=== PATIENT | male | born 1955 | race African-American/Black ===

== ENCOUNTER 2018-01-30 15:09 | Inpatient (IN) | payer OTHER ==
[2018-01-30 15:42] VITALS: BMI 22.5
--- NOTE | 2018-01-30 16:02 | HP ---
Admission [facility] Chief Complaint: i am here for rehab from heroin and alcohol Allergies/Adverse Reactions: Allergies Allergy/AdvReac Type Severity Reaction Status Date / Time Fish Containing Products Allergy Severe Hives Verified 01/30/18 15:35 No Known Drug Allergies Allergy Verified 01/30/18 15:35 History of Present Illness: this 62 years old male with heroin and alcohol dependence seeking rehab,last detox [facility] from 01/21/18 to 01/24/18 hypertension no medication nicotine dependence positive ppd schizophrenia - Ebola screening Have you traveled outside of the country in the last 21 days: No Have you had contact with anyone from an Ebola affected area: No Have you been sick,other than usual withdrawal symptoms: No Do you have a fever: No - Review of Systems Constitutional: No Symptoms Reported EENT: reports: No Symptoms Reported Respiratory: reports: No Symptoms reported Cardiac: reports: No Symptoms Reported GI: reports: No Symptoms Reported : reports: No Symptoms Reported Musculoskeletal: reports: No Symptoms Reported Integumentary: reports: No Symptoms Reported Neuro: reports: No Symptoms reported Endocrine: reports: No Symptoms Reported Hematology: reports: No Symptoms Reported Psychiatric: reports: No Sypmtoms Reported, Judgement Intact, Mood/Affect Appropiate, other (schizophrenia) Patient History - Patient Medical History Hx Anemia: No Hx Asthma: No Hx Chronic Obstructive Pulmonary Disease (COPD): No Hx Cancer: No Hx Cardiac Disorders: No Hx Hypertension: Yes (NO MEDS) Hx Hypercholesterolemia: No Hx Pacemaker: No HX Cerebrovascular Accident: No Hx Seizures: No Hx Dementia: No Hx Diabetes: No Hx Gastrointestinal Disorders: No Hx Liver Disease: No Hx Genitourinary Disorders: No Hx Sexually Transmitted Disorders: No Hx Renal Disease (ESRD): No Hx Thyroid Disease: No Hx Human Immunodeficiency Virus (HIV): No (last 2014 negative) Hx Hepatitis C: No Hx Depression: No Hx Suicide Attempt: No Hx Bipolar Disorder: No Hx Schizophrenia: Yes (2YRS AGO,hallucination) Other Medical History: no suicicdal,no homicidl - Patient Surgical History Past Surgical History: No Hx Neurologic Surgery: No Hx Cataract Extraction: No Hx Cardiac Surgery: No Hx Lung Surgery: No Hx Breast Surgery: No Hx Breast Biopsy: No Hx Abdominal Surgery: No Hx Appendectomy: No Hx Cholecystectomy: No Hx Genitourinary Surgery: No Hx Section: No Hx Orthopedic Surgery: No Anesthesia Reaction: No - PPD History Previous Implant?: No Documented Results: Positive w/o proof Implanted On Prior R Admission?: Yes PPD to be Administered?: No - Smoking Cessation Smoking history: Current every day smoker Have you smoked in the past 12 months: Yes Aproximately how many cigarettes per day: 4 Hx Chewing Tobacco Use: No Initiated information on smoking cessation: Yes 'Breaking Loose' booklet given: 01/30/18 - Substance & Tx. History Hx Alcohol Use: Yes Hx Substance Use: Yes Substance Use Type: Alcohol, Heroin Hx Substance Use Treatment: Yes ([facility] to 01/24/18) - Substances Abused Heroin Route: Inhalation Frequency: Daily Amount used: 3BAGS Age of first use: 41 Date of Last Use: 01/29/18 Alcohol Route: Oral Frequency: Daily Amount used: VODKA- 1PT BEER 1CAN Age of first use: 21 Date of Last Use: 01/29/18 Family Disease History - Family Disease History Family Disease History: Heart Disease: Father ( FROM CAD), Other: Mother ( HAD DEMENTIA AND ) Admission Physical Exam [facility] - Vital Signs Vital Signs: Vital Signs - 24 hr 01/30/18 15:33 Temperature 98.5 F Pulse Rate 69 Respiratory 20 Rate Blood Pressure 163/100 - Physical General Appearance: Yes: Within Normal Limits HEENTM: Yes: Within Normal Limits, Normal ENT Inspection, JODEE, Pharynx Normal Respiratory: Yes: Lungs Clear, Normal Breath Sounds, No Respiratory Distress Neck: Yes: Within Normal Limits, Supple, Trachea in good position Breast: Yes: Within Normal Limits Cardiology: Yes: Within Normal Limits, Regular Rhythm, Regular Rate, S1, S2 Abdominal: Yes: Within Normal Limits, Normal Bowel Sounds, Non Tender, Flat, Soft Genitourinary: Yes: Within Normal Limits Back: Yes: Within Normal Limits Musculoskeletal: Yes: Within Normal Limits, full range of Motion Extremities: Yes: Within Normal Limits Neurological: Yes: toddler guide II-XII NML intact, Fully Oriented, Alert, Motor Strength 5/5 Integumentary: Yes: Within Normal Limits Lymphatic: Yes: Within Normal Limits - Diagnostic (1) Opiate dependence Current Visit: No Status: Acute (2) Alcohol dependence Current Visit: No Status: Acute (3) HTN (hypertension) Current Visit: No Status: Chronic (4) Nicotine dependence Current Visit: No Status: Chronic (5) Schizophrenia Current Visit: No Status: Chronic Cleared for Admission [facility] - Detox or Rehab Claeared for Rehab Admission: Yes [facility] Breath Alcohol Content Breath Alcohol Content: 0 Urine Drug Screen - Results Drug Screen Negative: No Urine Drug Screen Results: OPI-Opiates, BZO-Benzodiazepines, MTD-Methadone, OXY- Oxycodone Inpatient Rehab Admission - Initial Determination Are CD services needed?: Yes Free of communicable disease: Yes Not in need of hospitalization: Yes - Rehab Admission Criteria Previous failed treatment: Yes Poor recovery environment: Yes Comorbidities: Yes Lacks judgement: No Patient is meeting Inpatient Rehab admission criteria:: Yes
[2018-01-30] MEDS ORDERED: P-EPHED 60MG/TRIPROLIDI 2.5MG TABLET PO PRN (16:06)
[2018-01-30] MEDS ORDERED: NICOTINE POLACRILEX 2 MG GUM BUC PRN (16:06)
[2018-01-30] MEDS ORDERED: MAG HYDROX/AL HYDROX/SIMETH 30 ML UNIT-DOSE CUP PO PRN (16:06)
[2018-01-30] MEDS ORDERED: ACETAMINOPHEN 325 MG TABLET (FP) PO PRN (16:06)
[2018-01-30] MEDS ORDERED: MAGNESIUM HYDROX 2400MG/30ML ORAL SUSPENSION 30 ML CUP PO PRN (16:06)
[2018-01-30] MEDS ORDERED: MAGNESIUM CITRATE 300 ML BOTTLE PO PRN (16:06)
[2018-01-30] MEDS ORDERED: LOPERAMIDE HCL 2 MG CAPSULE PO PRN (16:06)
[2018-01-30] MEDS ORDERED: guaiFENesin/D-METHORPHAN HB 10 ML UNIT-DOSE CUPS PO PRN (16:06)
[2018-01-30] MEDS ORDERED: MENTHOL/PHENOL 1 EACH UD MM PRN (16:06)
[2018-01-30] MEDS: NICOTINE 21 MG/24 HOURS TOPICAL PATCH TD SCH (20:24)
[2018-01-30] MEDS: THIAMINE HCL 100 MG TABLET (FP) PO SCH (21:47)
[2018-01-30] MEDS: MELATONIN 5 MG TABLETS PO PRN (21:47)
[2018-01-30] MEDS: hydrOXYzine PAMOATE 25 MG CAPSULE (FP) PO PRN (21:47)
[2018-01-31] MEDS: METOPROLOL TARTRATE 25 MG TABLET (FP) PO SCH (07:25)
[2018-01-31] MEDS: HYDROCHLOROTHIAZIDE 25 MG TABLET (FP) PO SCH (07:25)
[2018-01-31] MEDS: PRENATAL VITAMINS W/ FOLIC ACID TABLET (FP) PO SCH (09:57)
[2018-01-31] MEDS: NICOTINE 21 MG/24 HOURS TOPICAL PATCH TD SCH (09:58)
[2018-01-31] MEDS: MELATONIN 5 MG TABLETS PO PRN (21:38)
[2018-01-31] MEDS: hydrOXYzine PAMOATE 25 MG CAPSULE (FP) PO PRN (21:38)
[2018-01-31] MEDS: THIAMINE HCL 100 MG TABLET (FP) PO SCH (21:38)
[2018-02-01] MEDS: HYDROCHLOROTHIAZIDE 25 MG TABLET (FP) PO SCH (06:24)
[2018-02-01] MEDS: METOPROLOL TARTRATE 25 MG TABLET (FP) PO SCH (06:24)
--- NOTE | 2018-02-01 07:47 | HP ---
Psychiatrist Admission - Data Date of interview: 02/01/18 Admission source: Self-referred Identifying data: [facility] for this 62 years old Black male, father of 2 children, unemployed on public assistance, homeless Medical History: Significant for hypertension and history of treatment PPD+. Smokes 4 cigarettes daily Psychiatric History: Information provided by patient is inconsitent with the one provided in previoua admissions to this facility. Reports that he was that his first psychiatric contact was back in the 's when he was admitted to a [facility] facility in [place] for hearing voices. He was diagnosed with Schizophrenia and startedc on medication. Reports 2 subsequent admissions after coming to [place]. He was admitted first to [place] and most recentlt in 2016 to [place] for hearing voices. Reports that he was seeing a psychiatrist at a clinic in the [place] and he is prescribed medications. He has no recollection of name of medications. Pharmacy claims reveal scripts for Abilify 30 mg filled on 12/29/17, for Prozac 40 mg, Remeron 15 mg and Risperdal 1mg on 01/23/18. Denies previous suicidal attempt. At present, reports feeling depressed, anxious and sleeping poorly Physical/Sexual Abuse/Trauma History: Reports no history of physical or sexual abuse, and no history of service. Additional Comment: Reports history of multiple previous arrests including 3 felony convictions. Denies being on parole/probation at present Vital Signs: Vital Signs - 24 hr 02/01/18 02/01/18 02/01/18 00:30 03:30 06:58 Temperature 97.8 F Pulse Rate 67 Respiratory 18 18 18 Rate Blood Pressure 158/105 Allergies/Adverse Reactions: Allergies Allergy/AdvReac Type Severity Reaction Status Date / Time Fish Containing Products Allergy Severe Hives Verified 01/30/18 15:35 No Known Drug Allergies Allergy Verified 01/30/18 15:35 Date of last physical exam: 01/30/18 Concur with the findings of this exam: Yes - Substance Abuse/Tx History Hx Alcohol Use: Yes Hx Substance Use: Yes Substance Use Type: Alcohol (Started drinking alcohol at age 21, consumes one pint of vodka & one can of beer daily. Last drank on 01/29/18), Heroin (Started using heroin at age 41, consumes 3 bags daily. Last used on 01/29/18) Hx Substance Use Treatment: Yes (one previous inpt detox & one inpt rehab @ [facility] ) Mental Status Exam - Mental Status Exam Alert and Oriented to: Time, Place, Person Cognitive Function: Fair Patient Appearance: Disheveled Mood: Depressed, Anxious Affect: Appropriate Patient Behavior: Cooperative Speech Pattern: Clear Voice Loudness: Normal Thought Process: Intact, Goal Oriented Hallucinations: Denies Suicidal Ideation: Denies Insight/Judgement: Fair Sleep: Poorly Appetite: Good Muscle strength/Tone: Normal Gait/Station: Normal Psychiatric Findings - Problem List ([place] 1, 2,3) (1) Alcohol dependence Current Visit: No Status: Acute (2) Opiate dependence Current Visit: No Status: Acute (3) Nicotine dependence Current Visit: No Status: Chronic (4) Schizophrenia Current Visit: Yes Status: Chronic (5) Substance induced mood disorder Current Visit: Yes Status: Acute (6) Substance-induced sleep disorder Current Visit: Yes Status: Acute (7) HTN (hypertension) Current Visit: No Status: Chronic (8) PPD positive, treated Current Visit: Yes Status: Resolved - Initial Treatment Plan Initial Treatment Plan: 1) Continue Prozac 40 mg po daily, Remeron 15 mg po HS, Risperdal 1 mg po HS, Abilify 30 mg po HS. 2) Monitor progress
[2018-02-01] MEDS: NICOTINE 21 MG/24 HOURS TOPICAL PATCH TD SCH (10:03)
[2018-02-01] MEDS: PRENATAL VITAMINS W/ FOLIC ACID TABLET (FP) PO SCH (10:03)
[2018-02-01] MEDS: IBUPROFEN 400 MG TABLET (FP) PO PRN (12:19)
[2018-02-01] MEDS: FLUoxetine HCL 20 MG CAPSULE (FP) PO SCH (14:00)
[2018-02-01] MEDS: ARIPiprazole 15 MG TABLET PO SCH ×2 (14:00→14:12)
[2018-02-01] MEDS: hydrOXYzine PAMOATE 25 MG CAPSULE (FP) PO PRN (21:56)
[2018-02-01] MEDS: MIRTAZAPINE 15 MG TABLET (FP) PO SCH (21:56)
[2018-02-01] MEDS: risperiDONE 1 MG TABLET (FP) PO SCH (21:56)
[2018-02-01] MEDS: MELATONIN 5 MG TABLETS PO PRN (21:56)
[2018-02-01] MEDS: THIAMINE HCL 100 MG TABLET (FP) PO SCH (21:56)
[2018-02-01] MEDS ORDERED: MIRTAZAPINE 30 MG TABLET (FP) PO SCH (22:00)
[2018-02-02] MEDS: METOPROLOL TARTRATE 25 MG TABLET (FP) PO SCH (06:04)
[2018-02-02] MEDS: HYDROCHLOROTHIAZIDE 25 MG TABLET (FP) PO SCH (06:04)
[2018-02-02] MEDS: NICOTINE 21 MG/24 HOURS TOPICAL PATCH TD SCH (10:00)
[2018-02-02] MEDS: ARIPiprazole 15 MG TABLET PO SCH (10:00)
[2018-02-02] MEDS: FLUoxetine HCL 20 MG CAPSULE (FP) PO SCH (10:00)
[2018-02-02] MEDS: PRENATAL VITAMINS W/ FOLIC ACID TABLET (FP) PO SCH (10:00)
[2018-02-02] MEDS: MIRTAZAPINE 15 MG TABLET (FP) PO SCH (21:31)
[2018-02-02] MEDS: risperiDONE 1 MG TABLET (FP) PO SCH (21:31)
[2018-02-02] MEDS: THIAMINE HCL 100 MG TABLET (FP) PO SCH (21:31)
[2018-02-02] MEDS: MELATONIN 5 MG TABLETS PO PRN (21:32)
[2018-02-03] MEDS: METOPROLOL TARTRATE 25 MG TABLET (FP) PO SCH (06:47)
[2018-02-03] MEDS: HYDROCHLOROTHIAZIDE 25 MG TABLET (FP) PO SCH (06:47)
[2018-02-03] MEDS: FLUoxetine HCL 20 MG CAPSULE (FP) PO SCH (10:26)
[2018-02-03] MEDS: NICOTINE 21 MG/24 HOURS TOPICAL PATCH TD SCH (10:27)
[2018-02-03] MEDS: ARIPiprazole 15 MG TABLET PO SCH (10:27)
[2018-02-03] MEDS: PRENATAL VITAMINS W/ FOLIC ACID TABLET (FP) PO SCH (10:27)
[2018-02-03] MEDS: risperiDONE 1 MG TABLET (FP) PO SCH (21:30)
[2018-02-03] MEDS: THIAMINE HCL 100 MG TABLET (FP) PO SCH (21:30)
[2018-02-03] MEDS: MIRTAZAPINE 15 MG TABLET (FP) PO SCH (21:30)
[2018-02-03] MEDS: MELATONIN 5 MG TABLETS PO PRN (21:31)
[2018-02-04] MEDS: HYDROCHLOROTHIAZIDE 25 MG TABLET (FP) PO SCH (06:42)
[2018-02-04] MEDS: METOPROLOL TARTRATE 25 MG TABLET (FP) PO SCH (06:43)
[2018-02-04] MEDS: FLUoxetine HCL 20 MG CAPSULE (FP) PO SCH (10:27)
[2018-02-04] MEDS: PRENATAL VITAMINS W/ FOLIC ACID TABLET (FP) PO SCH (10:27)
[2018-02-04] MEDS: NICOTINE 21 MG/24 HOURS TOPICAL PATCH TD SCH (10:27)
[2018-02-04] MEDS: ARIPiprazole 15 MG TABLET PO SCH (10:28)
[2018-02-04] MEDS: THIAMINE HCL 100 MG TABLET (FP) PO SCH (21:35)
[2018-02-04] MEDS: MIRTAZAPINE 15 MG TABLET (FP) PO SCH (21:35)
[2018-02-04] MEDS: MELATONIN 5 MG TABLETS PO PRN (21:35)
[2018-02-04] MEDS: risperiDONE 1 MG TABLET (FP) PO SCH (21:35)
[2018-02-05] MEDS: HYDROCHLOROTHIAZIDE 25 MG TABLET (FP) PO SCH (05:59)
[2018-02-05] MEDS: METOPROLOL TARTRATE 25 MG TABLET (FP) PO SCH (06:00)
[2018-02-05] MEDS: PRENATAL VITAMINS W/ FOLIC ACID TABLET (FP) PO SCH (10:15)
[2018-02-05] MEDS: FLUoxetine HCL 20 MG CAPSULE (FP) PO SCH (10:15)
[2018-02-05] MEDS: ARIPiprazole 15 MG TABLET PO SCH (10:15)
[2018-02-05] MEDS: NICOTINE 21 MG/24 HOURS TOPICAL PATCH TD SCH (10:15)
[2018-02-05] MEDS: THIAMINE HCL 100 MG TABLET (FP) PO SCH (21:16)
[2018-02-05] MEDS: MELATONIN 5 MG TABLETS PO PRN (21:16)
[2018-02-05] MEDS: risperiDONE 1 MG TABLET (FP) PO SCH (21:17)
[2018-02-05] MEDS: MIRTAZAPINE 15 MG TABLET (FP) PO SCH (21:17)
[2018-02-06] MEDS: METOPROLOL TARTRATE 25 MG TABLET (FP) PO SCH (06:30)
[2018-02-06] MEDS: HYDROCHLOROTHIAZIDE 25 MG TABLET (FP) PO SCH (06:30)
[2018-02-06] MEDS: PRENATAL VITAMINS W/ FOLIC ACID TABLET (FP) PO SCH (09:56)
[2018-02-06] MEDS: FLUoxetine HCL 20 MG CAPSULE (FP) PO SCH (09:56)
[2018-02-06] MEDS: NICOTINE 21 MG/24 HOURS TOPICAL PATCH TD SCH (09:57)
[2018-02-06] MEDS: ARIPiprazole 15 MG TABLET PO SCH (09:57)
[2018-02-06] MEDS: MIRTAZAPINE 15 MG TABLET (FP) PO SCH (21:46)
[2018-02-06] MEDS: risperiDONE 1 MG TABLET (FP) PO SCH (21:46)
[2018-02-06] MEDS: MELATONIN 5 MG TABLETS PO PRN (21:46)
[2018-02-06] MEDS: THIAMINE HCL 100 MG TABLET (FP) PO SCH (21:46)
[2018-02-07] MEDS: METOPROLOL TARTRATE 25 MG TABLET (FP) PO SCH (06:09)
[2018-02-07] MEDS: HYDROCHLOROTHIAZIDE 25 MG TABLET (FP) PO SCH (06:09)
[2018-02-07] MEDS: NICOTINE 21 MG/24 HOURS TOPICAL PATCH TD SCH (10:16)
[2018-02-07] MEDS: ARIPiprazole 15 MG TABLET PO SCH (10:16)
[2018-02-07] MEDS: PRENATAL VITAMINS W/ FOLIC ACID TABLET (FP) PO SCH (10:16)
[2018-02-07] MEDS: FLUoxetine HCL 20 MG CAPSULE (FP) PO SCH (10:16)
--- NOTE | 2018-02-07 13:58 | EKG ---
Test Reason : Blood Pressure : / mmHG Vent. Rate : 076 BPM Atrial Rate : 076 BPM P-R Int : 160 ms QRS Dur : 080 ms QT Int : 382 ms P-R-T Axes : 062 038 055 degrees QTc Int : 429 ms NORMAL SINUS RHYTHM NORMAL ECG NO PREVIOUS ECGS AVAILABLE Confirmed by Zohaib Argueta MD ([id number]) on 02/07/2018 1:57:51 PM Referred By: Confirmed By:Zohaib Argueta MD
--- NOTE | 2018-02-07 15:18 | PN ---
[facility] Progress Note Note: Vital Signs Temperature 98.4 F 02/07/18 07:09 Pulse Rate 82 02/07/18 10:00 Respiratory Rate 18 02/07/18 10:00 Blood Pressure 125/77 02/07/18 10:00 O2 Sat by Pulse Oximetry (%) Patient c/o of vertigo patient stable Aox3 no distress no adventitious breath sounds ambulating in the in the unit - vertigo Plan: CBC CMP antivert 12.5 mg q6h increase fluids continue to monitor
[2018-02-07] MEDS: MECLIZINE HCL 12.5 MG TABLET PO SCH ×2 (17:40→23:27)
[2018-02-07] MEDS: MIRTAZAPINE 15 MG TABLET (FP) PO SCH (21:39)
[2018-02-07] MEDS: hydrOXYzine PAMOATE 25 MG CAPSULE (FP) PO PRN (21:39)
[2018-02-07] MEDS: risperiDONE 1 MG TABLET (FP) PO SCH (21:39)
[2018-02-07] MEDS: MELATONIN 5 MG TABLETS PO PRN (21:40)
[2018-02-07] MEDS: THIAMINE HCL 100 MG TABLET (FP) PO SCH (21:40)
[2018-02-08] MEDS: HYDROCHLOROTHIAZIDE 25 MG TABLET (FP) PO SCH (06:08)
[2018-02-08] MEDS: METOPROLOL TARTRATE 25 MG TABLET (FP) PO SCH (06:08)
[2018-02-08] MEDS: MECLIZINE HCL 12.5 MG TABLET PO SCH ×3 (06:08→18:13)
[2018-02-08] MEDS: ARIPiprazole 15 MG TABLET PO SCH (09:59)
[2018-02-08] MEDS: FLUoxetine HCL 20 MG CAPSULE (FP) PO SCH (09:59)
[2018-02-08] MEDS: NICOTINE 21 MG/24 HOURS TOPICAL PATCH TD SCH (09:59)
[2018-02-08] MEDS: PRENATAL VITAMINS W/ FOLIC ACID TABLET (FP) PO SCH (09:59)
[2018-02-08 10:07] LABS: ALBUMIN 3.6 g/dl (3.4-5.0); ANION GAP 9 (8-16); BILIRUBIN,TOTAL 0.3 mg/dL (0.2-1.0); BLOOD UREA NITROGEN 11 mg/dL (7-18); CALCIUM 9.6 mg/dL (8.5-10.1); CHLORIDE 106 mmol/L (98-107); CO2 28 mmol/L (21-32); GLUCOSE,RANDOM 171 mg/dL (74-106); POTASSIUM 3.9 mmol/L (3.5-5.1); SGOT/AST 22 U/L (15-37); SGPT/ALT 44 U/L (12-78); SODIUM 143 mmol/L (136-145)
[2018-02-08 10:08] LABS: ALK PHOS 64 U/L (45-117)
[2018-02-08 10:16] LABS: BASO % 0.6 % (0-2.0); HEMATOCRIT 39.4 % (35.4-49); HEMOGLOBIN 13.2 GM/dL (11.7-16.9); LYMPH % 21.7 % (8-40); MCHC 33.5 g/dl (32.0-35.9); MEAN CELL VOLUME 89.4 fl (80-96); MEAN PLT VOLUME 8.4 fl (7.5-11.1); MONO % 5.4 % (3.8-10.2); NEUT % 69.3 % (42.8-82.8); PLATELET COUNT 296 K/MM3 (134-434); RBC 4.41 M/mm3 (4.00-5.60); RDW 16.2 % (11.9-15.9)
[2018-02-08] MEDS: hydrOXYzine PAMOATE 25 MG CAPSULE (FP) PO PRN (21:23)
[2018-02-08] MEDS: risperiDONE 1 MG TABLET (FP) PO SCH (21:23)
[2018-02-08] MEDS: MELATONIN 5 MG TABLETS PO PRN (21:23)
[2018-02-08] MEDS: MIRTAZAPINE 15 MG TABLET (FP) PO SCH (21:23)
[2018-02-08] MEDS: THIAMINE HCL 100 MG TABLET (FP) PO SCH (21:24)
[2018-02-09] MEDS: MECLIZINE HCL 12.5 MG TABLET PO SCH ×5 (04:58→23:43)
[2018-02-09] MEDS: METOPROLOL TARTRATE 25 MG TABLET (FP) PO SCH (06:11)
[2018-02-09] MEDS: HYDROCHLOROTHIAZIDE 25 MG TABLET (FP) PO SCH (06:11)
[2018-02-09] MEDS: FLUoxetine HCL 20 MG CAPSULE (FP) PO SCH (10:03)
[2018-02-09] MEDS: PRENATAL VITAMINS W/ FOLIC ACID TABLET (FP) PO SCH (10:03)
[2018-02-09] MEDS: NICOTINE 21 MG/24 HOURS TOPICAL PATCH TD SCH (10:03)
[2018-02-09] MEDS: ARIPiprazole 15 MG TABLET PO SCH (10:23)
--- NOTE | 2018-02-09 14:31 | PN ---
[facility] Progress Note Note: Vital Signs Temperature 97.6 F 02/09/18 06:55 Pulse Rate 91 H 02/09/18 10:00 Respiratory Rate 18 02/09/18 10:00 Blood Pressure 103/77 02/09/18 10:00 O2 Sat by Pulse Oximetry (%) Laboratory Last Values WBC 7.0 K/mm3 (4.0-10.0) 02/08/18 06:30 RBC 4.41 M/mm3 (4.00-5.60) 02/08/18 06:30 Hgb 13.2 GM/dL (11.7-16.9) 02/08/18 06:30 Hct 39.4 % (35.4-49) D 02/08/18 06:30 MCV 89.4 fl (80-96) 02/08/18 06:30 MCH 30.0 pg (25.7-33.7) 02/08/18 06:30 MCHC 33.5 g/dl (32.0-35.9) 02/08/18 06:30 RDW 16.2 % (11.9-15.9) H 02/08/18 06:30 Plt Count 296 K/MM3 (134-434) D 02/08/18 06:30 MPV 8.4 fl (7.5-11.1) 02/08/18 06:30 Absolute Neuts (auto) 4.9 # 02/08/18 06:30 Neutrophils % 69.3 % (42.8-82.8) 02/08/18 06:30 Lymphocytes % 21.7 % (8-40) 02/08/18 06:30 Monocytes % 5.4 % (3.8-10.2) 02/08/18 06:30 Eosinophils % 3.0 % (0-4.5) 02/08/18 06:30 Basophils % 0.6 % (0-2.0) 02/08/18 06:30 Nucleated RBC % 0 % (0-0) 02/08/18 06:30 Sodium 143 mmol/L (136-145) 02/08/18 06:30 Potassium 3.9 mmol/L (3.5-5.1) 02/08/18 06:30 Chloride 106 mmol/L (98-107) 02/08/18 06:30 Carbon Dioxide 28 mmol/L (21-32) 02/08/18 06:30 Anion Gap 9 (8-16) 02/08/18 06:30 BUN 11 mg/dL (7-18) 02/08/18 06:30 Creatinine 1.0 mg/dL (0.7-1.3) 02/08/18 06:30 Creat Clearance w eGFR > 60 (>60) 02/08/18 06:30 Random Glucose 171 mg/dL (74-106) H D 02/08/18 06:30 Calcium 9.6 mg/dL (8.5-10.1) 02/08/18 06:30 Total Bilirubin 0.3 mg/dL (0.2-1.0) 02/08/18 06:30 AST 22 U/L (15-37) D 02/08/18 06:30 ALT 44 U/L (12-78) D 02/08/18 06:30 Alkaline Phosphatase 64 U/L (45-117) 02/08/18 06:30 Total Protein 7.0 g/dl (6.4-8.2) 02/08/18 06:30 Albumin 3.6 g/dl (3.4-5.0) 02/08/18 06:30 RPR Titer Nonreactive (NONREACTIVE) 02/08/18 06:30 Patient reports improvement in vertigo elevated blood glucose, reports has not tolerated sweats well , " I ate too many lollipops and I felt dizzy" Patient Aox3 no distress skin intact no adventitious breath sounds full ROM ambulating in the unit Plan: increase fluids labs reviewed with patient A1C in AM continue to monitor
[2018-02-09] MEDS: HYDROCORTISONE ACETATE 25 MG/SUPP.RECT RC SCH (21:03)
[2018-02-09] MEDS: MELATONIN 5 MG TABLETS PO PRN (21:04)
[2018-02-09] MEDS: risperiDONE 1 MG TABLET (FP) PO SCH (21:04)
[2018-02-09] MEDS: THIAMINE HCL 100 MG TABLET (FP) PO SCH (21:04)
[2018-02-09] MEDS: MIRTAZAPINE 15 MG TABLET (FP) PO SCH (21:04)
[2018-02-09] MEDS: hydrOXYzine PAMOATE 25 MG CAPSULE (FP) PO PRN (21:05)
[2018-02-10] MEDS: METOPROLOL TARTRATE 25 MG TABLET (FP) PO SCH (06:12)
[2018-02-10] MEDS: MECLIZINE HCL 12.5 MG TABLET PO SCH ×4 (06:12→23:45)
[2018-02-10] MEDS: HYDROCHLOROTHIAZIDE 25 MG TABLET (FP) PO SCH (06:12)
[2018-02-10] MEDS: PRENATAL VITAMINS W/ FOLIC ACID TABLET (FP) PO SCH (09:51)
[2018-02-10] MEDS: IBUPROFEN 400 MG TABLET (FP) PO PRN (09:51)
[2018-02-10] MEDS: FLUoxetine HCL 20 MG CAPSULE (FP) PO SCH (09:52)
[2018-02-10] MEDS: ARIPiprazole 15 MG TABLET PO SCH (09:52)
[2018-02-10] MEDS: NICOTINE 21 MG/24 HOURS TOPICAL PATCH TD SCH (09:52)
[2018-02-10] MEDS: THIAMINE HCL 100 MG TABLET (FP) PO SCH (21:10)
[2018-02-10] MEDS: HYDROCORTISONE ACETATE 25 MG/SUPP.RECT RC SCH (21:11)
[2018-02-10] MEDS: MIRTAZAPINE 15 MG TABLET (FP) PO SCH (21:11)
[2018-02-10] MEDS: MELATONIN 5 MG TABLETS PO PRN (21:11)
[2018-02-10] MEDS: risperiDONE 1 MG TABLET (FP) PO SCH (21:11)
[2018-02-11] MEDS: METOPROLOL TARTRATE 25 MG TABLET (FP) PO SCH (06:13)
[2018-02-11] MEDS: MECLIZINE HCL 12.5 MG TABLET PO SCH ×4 (06:13→23:23)
[2018-02-11] MEDS: HYDROCHLOROTHIAZIDE 25 MG TABLET (FP) PO SCH (06:13)
[2018-02-11] MEDS: PRENATAL VITAMINS W/ FOLIC ACID TABLET (FP) PO SCH (09:49)
[2018-02-11] MEDS: ARIPiprazole 15 MG TABLET PO SCH (09:49)
[2018-02-11] MEDS: FLUoxetine HCL 20 MG CAPSULE (FP) PO SCH (09:49)
[2018-02-11] MEDS: NICOTINE 21 MG/24 HOURS TOPICAL PATCH TD SCH (09:49)
[2018-02-11] MEDS: THIAMINE HCL 100 MG TABLET (FP) PO SCH (21:15)
[2018-02-11] MEDS: risperiDONE 1 MG TABLET (FP) PO SCH (21:15)
[2018-02-11] MEDS: MELATONIN 5 MG TABLETS PO PRN (21:15)
[2018-02-11] MEDS: MIRTAZAPINE 15 MG TABLET (FP) PO SCH (21:15)
[2018-02-11] MEDS: HYDROCORTISONE ACETATE 25 MG/SUPP.RECT RC SCH (21:15)
[2018-02-12] MEDS: HYDROCHLOROTHIAZIDE 25 MG TABLET (FP) PO SCH (06:43)
[2018-02-12] MEDS: MECLIZINE HCL 12.5 MG TABLET PO SCH ×4 (06:43→23:07)
[2018-02-12] MEDS: METOPROLOL TARTRATE 25 MG TABLET (FP) PO SCH (06:43)
[2018-02-12] MEDS: ARIPiprazole 15 MG TABLET PO SCH (09:56)
[2018-02-12] MEDS: PRENATAL VITAMINS W/ FOLIC ACID TABLET (FP) PO SCH (09:56)
[2018-02-12] MEDS: FLUoxetine HCL 20 MG CAPSULE (FP) PO SCH (09:56)
[2018-02-12] MEDS: NICOTINE 21 MG/24 HOURS TOPICAL PATCH TD SCH (09:56)
--- NOTE | 2018-02-12 16:33 | PN ---
Psychiatric Progress Note Vital Signs: Vital Signs Period Temp Pulse Resp BP Sys/Glass Pulse Ox Last 24 Hr 98.2 F 91-93 18-18 103-126/82-90 Date of Session: 02/12/18 Chief Complaint:: Discharge Note HPI: Patient addressing Alcohol and Opioid Dependence comorbid with Nicotine Dependence, Substance-Induced Mood Disorder and Substance-Induced Sleep Disorder ROS: HTN, PPD+ treated Current Medications: Active Medications Generic Name Dose Route Start Last Admin Trade Name Freq PRN Reason Stop Dose Admin Acetaminophen 650 mg 01/30/18 16:06 02/01/18 17:25 Tylenol - PO 650 mg Q4H PRN Administration FEVER Al Hydroxide/Mg Hydroxide 30 ml 01/30/18 16:06 Mylanta Oral Suspension - PO Q6H PRN DYSPEPSIA Aripiprazole 30 mg 02/01/18 12:30 02/12/18 09:56 Abilify PO Not Given DAILY ISHAAN Eucalyptus/Menthol/Phenol/Sorbitol 1 each 01/30/18 16:06 Cepastat Lozenge - MM Q4H PRN SORE THROAT Fluoxetine HCl 40 mg 02/01/18 12:30 02/12/18 09:56 Prozac - PO 40 mg DAILY ISHAAN Administration Guaifenesin 10 ml 01/30/18 16:06 Robitussin Dm - PO Q6H PRN COUGH Hydrochlorothiazide 25 mg 01/31/18 07:00 02/12/18 06:43 Hctz - PO 25 mg DAILY@0600 ISHAAN Administration Hydrocortisone Acetate 25 mg 02/09/18 22:00 02/11/18 21:15 Anusol Hc Suppository - RC 25 mg HS ISHAAN Administration Hydroxyzine Pamoate 25 mg 01/30/18 16:06 02/09/18 21:05 Vistaril - PO 25 mg Q4H PRN Administration AGITATION Ibuprofen 400 mg 01/30/18 16:06 02/10/18 09:51 Motrin - PO 400 mg Q6H PRN Administration Pain Level 4-6 Loperamide HCl 4 mg 01/30/18 16:06 Imodium - PO Q6H PRN DIARRHEA Magnesium Citrate 300 ml 01/30/18 16:06 Citroma - PO Q48H PRN CONSTIPATION Magnesium Hydroxide 30 ml 01/30/18 16:06 Milk Of Magnesia - PO DAILY PRN CONSTIPATION Meclizine HCl 12.5 mg 02/07/18 18:00 02/12/18 12:43 Antivert - PO 12.5 mg Q6HPO ISHAAN Administration Melatonin 5 mg 01/30/18 22:00 02/11/18 21:15 Melatonin PO 5 mg HS PRN Administration INSOMNIA Metoprolol Tartrate 25 mg 01/31/18 07:00 02/12/18 06:43 Lopressor - PO 25 mg DAILY@0600 ISHAAN Administration Mirtazapine 15 mg 02/01/18 22:00 02/11/18 21:15 Remeron - PO 15 mg HS ISHAAN Administration Nicotine 21 mg 01/30/18 17:15 02/12/18 09:56 Nicoderm Patch - TD Not Given DAILY ISHAAN Nicotine Polacrilex 2 mg 01/30/18 16:06 Nicorette Gum - BUC Q2H PRN NICOTINE REPLACEMENT RX Multivit/Folic Acid/Iron 1 tab 01/31/18 10:00 02/12/18 09:56 Vitamins (Sjr) - PO 1 tab DAILY ISHAAN Administration Pseudoephedrine/Triprolidine 1 combo 01/30/18 16:06 Actifed - PO TID PRN NASAL CONGESTION Risperidone 1 mg 02/01/18 22:00 02/11/18 21:15 Risperdal - PO 1 mg HS ISHAAN Administration Thiamine HCl 100 mg 01/30/18 22:00 02/11/18 21:15 Vitamin B1 - PO 100 mg HS ISHAAN Administration Current Side Effect: No Lab tests ordered: Yes Lab tests reviewed: Yes Provider note:: Patient will complete this program on 02/13/18. He has met his treatment goals and will continue to address his issues in outpatient treatment at [facility]. Told chief writer that from hios partticipation in this program , he has learned he needs to have patience and persererance as necessary tools to maintain abstinence. He responded well to Prozac 40 mg po daily, Remeron 15 mg po HS, Risperdal 1 mg po HS and Abilify 30 mg po HS. Scripts for 30 days supply of these medications will be electronically transmitted to [place] [facility] [address] [place] [address]. He is stable fo discharge on 02/13/18 Total face to face time:: 35 Mental Status Exam - Mental Status Exam Alert and Oriented to: Time, Place, Person Cognitive Function: Fair Patient Appearance: Well Groomed Mood: Hopeful, Euthymic Affect: Appropriate Patient Behavior: Cooperative Speech Pattern: Clear Voice Loudness: Normal Thought Process: Intact, Goal Oriented Thought Disorder: Not Present Hallucinations: Denies Suicidal Ideation: Denies Homicidal Ideation: Denies Insight/Judgement: Fair Sleep: Fair Appetite: Good Muscle strength/Tone: Normal Gait/Station: Normal Psychiatric Treatment Plan - Problem List (1) Alcohol dependence Current Visit: Yes Qualifiers: Substance use status: uncomplicated Qualified Code(s): F10.20 - Alcohol dependence, uncomplicated (2) Opiate dependence Current Visit: Yes Qualifiers: Substance use status: uncomplicated Qualified Code(s): F11.20 - Opioid dependence, uncomplicated (3) Nicotine dependence Current Visit: No Qualifiers: Nicotine product type: cigarettes (4) Schizophrenia Current Visit: Yes (5) Substance induced mood disorder Current Visit: Yes (6) Substance-induced sleep disorder Current Visit: Yes (7) HTN (hypertension) Current Visit: Yes Qualifiers: Hypertension type: essential hypertension Qualified Code(s): I10 - Essential (primary) hypertension (8) PPD positive, treated Current Visit: Yes Initial treatment plan: Patient will be discharged tomorrow and referred to [facility] for outpatient treatment
[2018-02-12] MEDS: THIAMINE HCL 100 MG TABLET (FP) PO SCH (21:12)
[2018-02-12] MEDS: MIRTAZAPINE 15 MG TABLET (FP) PO SCH (21:12)
[2018-02-12] MEDS: HYDROCORTISONE ACETATE 25 MG/SUPP.RECT RC SCH (21:12)
[2018-02-12] MEDS: risperiDONE 1 MG TABLET (FP) PO SCH (21:12)
[2018-02-12] MEDS: MELATONIN 5 MG TABLETS PO PRN (21:13)
[2018-02-13] MEDS: METOPROLOL TARTRATE 25 MG TABLET (FP) PO SCH (05:51)
[2018-02-13] MEDS: HYDROCHLOROTHIAZIDE 25 MG TABLET (FP) PO SCH (05:51)
[2018-02-13] MEDS: MECLIZINE HCL 12.5 MG TABLET PO SCH (05:51)
[2018-02-13 06:47] VITALS: BP 127/95; PULSE 86; TEMP 97.8
== END 2018-02-13 08:25 | disposition home or self-care (01) | DRG 772 ==
LOC: YASAS 15:09 → Y3W 16:14
PROVIDERS: ADMIT Psychiatry & Neurology Psychiatry; ATTEND Psychiatry & Neurology Psychiatry
PROC: HZ42ZZZ Group Counseling for Substance Abuse Treatment, Cognitive-Behavioral (ICD-10-PCS; principal; 2018-01-30)
DX: F11.20 Opioid dependence, uncomplicated (principal); F10.20 Alcohol dependence, uncomplicated; F20.9 Schizophrenia, unspecified; F19.24 Other psychoactive substance dependence with psychoactive substance-induced mood disorder; F19.282 Other psychoactive substance dependence with psychoactive substance-induced sleep disorder; I10 Essential (primary) hypertension; R76.11 Nonspecific reaction to tuberculin skin test without active tuberculosis; R42 Dizziness and giddiness; R73.9 Hyperglycemia, unspecified
CPT/HCPCS: 36415; 71046-TC-FY; 80053; 83036; 85025; 86593; 93005; 93010; J2794

== ENCOUNTER 2022-02-16 19:12 | Inpatient (IN) | payer OTHER ==
[2022-02-16] MEDS ORDERED: ACETAMINOPHEN 325 MG TABLET (FP) PO PRN ×2 (20:59)
[2022-02-16] MEDS ORDERED: MAGNESIUM CITRATE 300 ML BOTTLE PO PRN (20:59)
[2022-02-16] MEDS ORDERED: NICOTINE POLACRILEX 2 MG GUM BUC PRN (20:59)
[2022-02-16] MEDS ORDERED: ONDANSETRON *ODT* 4 MG TABLET SL PRN (20:59)
[2022-02-16] MEDS ORDERED: BISMUTH SUBSALICYLATE 524 MG/30 ML PO PRN (20:59)
[2022-02-16] MEDS ORDERED: MAGNESIUM HYDROX 2400MG/30ML ORAL SUSPENSION 30 ML CUP PO PRN (20:59)
[2022-02-16] MEDS ORDERED: P-EPHED 60MG/TRIPROLIDI 2.5MG TABLET PO PRN (20:59)
[2022-02-16] MEDS ORDERED: IBUPROFEN 400 MG TABLET (FP) PO PRN (20:59)
[2022-02-16] MEDS ORDERED: LOPERAMIDE HCL 2 MG CAPSULE PO PRN (20:59)
[2022-02-16] MEDS ORDERED: DICYCLOMINE HCL 10 MG CAPSULE PO PRN (20:59)
[2022-02-16] MEDS ORDERED: BENZOCAINE/MENTHOL (CHLORASEPTIC ) LOZENGE MM PRN (20:59)
[2022-02-16] MEDS ORDERED: IBUPROFEN 600 MG TABLET (FP) PO PRN (20:59)
[2022-02-16] MEDS ORDERED: MAG HYDROX/AL HYDROX/SIMETH 30 ML UNIT-DOSE CUP PO PRN (20:59)
[2022-02-16] MEDS ORDERED: chlordiazePOXIDE HCL 25 MG CAPSULE PO PRN (21:01)
[2022-02-16] MEDS ORDERED: cloNIDine HCL 0.1 MG TABLET PO ONE (21:01)
[2022-02-16] MEDS ORDERED: cloNIDine HCL 0.1 MG TABLET PO PRN (21:02)
[2022-02-16] MEDS ORDERED: methaDONE HCL 10 MG TABLET (FOR DETOX USE ONLY) PO ONE (21:02)
[2022-02-16 21:04] VITALS: BMI 18.8
[2022-02-16] MEDS ORDERED: chlordiazePOXIDE HCL 25 MG CAPSULE ONE (21:36)
[2022-02-17] MEDS: METHOCARBAMOL 500 MG TABLET PO PRN (01:14)
[2022-02-17] MEDS: THIAMINE HCL 100 MG TABLET (FP) PO SCH ×2 (01:14→22:46)
[2022-02-17] MEDS: chlordiazePOXIDE HCL 25 MG CAPSULE PO SCH ×5 (01:14→22:46)
[2022-02-17] MEDS: PRENATAL VITAMINS W/ FOLIC ACID TABLET (FP) PO SCH (10:55)
[2022-02-17] MEDS: hydrOXYzine PAMOATE 25 MG CAPSULE (FP) PO PRN (10:57)
[2022-02-17 11:08] LABS: HEMATOCRIT 38.1 % (35.4-49); HEMOGLOBIN 12.7 GM/dL (11.7-16.9); MCH 28.6 pg (25.7-33.7); MCHC 33.3 g/dl (32.0-35.9); MEAN PLT VOLUME 7.6 fl (7.5-11.1); PLATELET COUNT 239 10^3/uL (134-434); RBC 4.43 M/mm3 (4.00-5.60); RDW 17.1 % (11.9-15.9); WHITE BLOOD COUNT 4.9 K/mm3 (4.0-10.0)
[2022-02-17 11:23] LABS: CALCIUM 8.6 mg/dL (8.5-10.1)
[2022-02-17 11:24] LABS: ALBUMIN 3.5 g/dl (3.4-5.0); BLOOD UREA NITROGEN 7.6 mg/dL (7-18)
[2022-02-17 11:29] LABS: BILIRUBIN,TOTAL 0.9 mg/dL (0.2-1); TOT PROT 7.2 g/dl (6.4-8.2)
[2022-02-18] MEDS: chlordiazePOXIDE HCL 25 MG CAPSULE PO SCH ×4 (05:44→22:34)
[2022-02-18] MEDS ORDERED: methaDONE HCL 10 MG TABLET (FOR DETOX USE ONLY) PO ONE (10:00)
[2022-02-18] MEDS: PRENATAL VITAMINS W/ FOLIC ACID TABLET (FP) PO SCH (10:35)
[2022-02-18] MEDS: NICOTINE 10 MG CARTRIDGE (INHALER) IH PRN (10:41)
[2022-02-18] MEDS: THIAMINE HCL 100 MG TABLET (FP) PO SCH (22:35)
[2022-02-19] MEDS ORDERED: chlordiazePOXIDE HCL 10 MG CAPSULE PO PRN
[2022-02-19] MEDS: chlordiazePOXIDE HCL 10 MG CAPSULE PO SCH ×4 (05:30→22:30)
[2022-02-19] MEDS: PRENATAL VITAMINS W/ FOLIC ACID TABLET (FP) PO SCH (10:28)
[2022-02-19] MEDS: METHOCARBAMOL 500 MG TABLET PO PRN (10:28)
[2022-02-19] MEDS: hydrOXYzine PAMOATE 25 MG CAPSULE (FP) PO PRN ×2 (10:28→22:30)
[2022-02-19 11:01] LABS: BLOOD UREA NITROGEN 13.1 mg/dL (7-18); CALCIUM 9.6 mg/dL (8.5-10.1)
[2022-02-19 11:04] LABS: CREATININE 0.8 mg/dL (0.55-1.3)
[2022-02-19] MEDS ORDERED: cloNIDine HCL 0.1 MG TABLET PO ONE (12:37)
[2022-02-19] MEDS: MELATONIN 5 MG TABLETS PO PRN (22:30)
[2022-02-19] MEDS: THIAMINE HCL 100 MG TABLET (FP) PO SCH (22:30)
[2022-02-20] MEDS: chlordiazePOXIDE HCL 10 MG CAPSULE PO SCH ×2 (06:04→17:38)
[2022-02-20] MEDS: PRENATAL VITAMINS W/ FOLIC ACID TABLET (FP) PO SCH (09:40)
[2022-02-20] MEDS: NICOTINE 10 MG CARTRIDGE (INHALER) IH PRN (13:08)
[2022-02-20] MEDS: hydrOXYzine PAMOATE 25 MG CAPSULE (FP) PO PRN (22:21)
[2022-02-20] MEDS: THIAMINE HCL 100 MG TABLET (FP) PO SCH (22:21)
[2022-02-20] MEDS: MELATONIN 5 MG TABLETS PO PRN (22:21)
[2022-02-21] MEDS ORDERED: chlordiazePOXIDE HCL 10 MG CAPSULE PO ONE (05:00)
[2022-02-21 09:33] VITALS: BP 134/95; PULSE 80; RESP 17; TEMP 98.2
[2022-02-21] MEDS: PRENATAL VITAMINS W/ FOLIC ACID TABLET (FP) PO SCH (10:09)
== END 2022-02-21 09:48 | disposition home or self-care (01) | DRG 773 ==
LOC: YASAS 19:12 → Y6N 02-17 00:42
PROVIDERS: ADMIT Allergy & Immunology; ATTEND Surgery
PROC: HZ2ZZZZ Detoxification Services for Substance Abuse Treatment (ICD-10-PCS; principal; 2022-02-17)
DX: F11.23 Opioid dependence with withdrawal (principal); F10.230 Alcohol dependence with withdrawal, uncomplicated; F17.213 Nicotine dependence, cigarettes, with withdrawal; F20.9 Schizophrenia, unspecified; F19.24 Other psychoactive substance dependence with psychoactive substance-induced mood disorder; F19.282 Other psychoactive substance dependence with psychoactive substance-induced sleep disorder; I10 Essential (primary) hypertension; R00.0 Tachycardia, unspecified; R01.1 Cardiac murmur, unspecified; Z86.11 Personal history of tuberculosis; Z91.013 Allergy to seafood; Z56.0 Unemployment, unspecified
CPT/HCPCS: 36415; 71046-TC-FY; 80048; 80053; 82947; 82962; 83036; 85027; 86780; 93005; 93010; C9803-CS; J0735; Q0162; U0003; U0005

== ENCOUNTER 2022-04-05 12:31 | Inpatient (IN) | payer OTHER ==
[2022-04-05 13:21] VITALS: BMI 19.1
[2022-04-05] MEDS ORDERED: LOPERAMIDE HCL 2 MG CAPSULE PO PRN (15:09)
[2022-04-05] MEDS ORDERED: DICYCLOMINE HCL 10 MG CAPSULE PO PRN (15:09)
[2022-04-05] MEDS ORDERED: chlordiazePOXIDE HCL 25 MG CAPSULE PO PRN (15:09)
[2022-04-05] MEDS ORDERED: MAGNESIUM CITRATE 300 ML BOTTLE PO PRN (15:09)
[2022-04-05] MEDS ORDERED: BISMUTH SUBSALICYLATE 524 MG/30 ML PO PRN (15:09)
[2022-04-05] MEDS ORDERED: NICOTINE 10 MG CARTRIDGE (INHALER) IH PRN (15:09)
[2022-04-05] MEDS ORDERED: ONDANSETRON *ODT* 4 MG TABLET SL PRN (15:09)
[2022-04-05] MEDS ORDERED: IBUPROFEN 600 MG TABLET (FP) PO PRN (15:09)
[2022-04-05] MEDS ORDERED: ACETAMINOPHEN 325 MG TABLET (FP) PO PRN ×2 (15:09)
[2022-04-05] MEDS ORDERED: BENZOCAINE/MENTHOL (CHLORASEPTIC ) LOZENGE MM PRN (15:09)
[2022-04-05] MEDS ORDERED: methaDONE HCL 10 MG TABLET (FOR DETOX USE ONLY) PO ONE (15:09)
[2022-04-05] MEDS ORDERED: NICOTINE POLACRILEX 2 MG GUM BUC PRN (15:09)
[2022-04-05] MEDS ORDERED: IBUPROFEN 400 MG TABLET (FP) PO PRN (15:09)
[2022-04-05] MEDS ORDERED: MAGNESIUM HYDROX 2400MG/30ML ORAL SUSPENSION 30 ML CUP PO PRN (15:09)
[2022-04-05] MEDS ORDERED: cloNIDine HCL 0.1 MG TABLET PO PRN (15:09)
[2022-04-05] MEDS ORDERED: NALOXONE HCL (KLOXXADO) 8 MG SPRAY NS PRN (15:09)
[2022-04-05] MEDS: amLODIPine BESYLATE 5 MG TABLET (FP) PO SCH (16:00)
[2022-04-05] MEDS: METHOCARBAMOL 500 MG TABLET PO PRN (16:00)
[2022-04-05] MEDS: PRENATAL VITAMINS W/ FOLIC ACID TABLET (FP) PO SCH (16:00)
[2022-04-05] MEDS: chlordiazePOXIDE HCL 25 MG CAPSULE PO SCH ×2 (17:39→22:10)
[2022-04-05] MEDS: hydrOXYzine PAMOATE 25 MG CAPSULE (FP) PO SCH ×2 (20:29→22:10)
[2022-04-05] MEDS: MELATONIN 5 MG TABLETS PO SCH (22:09)
[2022-04-05] MEDS: THIAMINE HCL 100 MG TABLET (FP) PO SCH (22:09)
[2022-04-06] MEDS: chlordiazePOXIDE HCL 25 MG CAPSULE PO SCH ×4 (05:52→22:25)
[2022-04-06] MEDS: hydrOXYzine PAMOATE 25 MG CAPSULE (FP) PO SCH ×5 (07:02→22:25)
[2022-04-06] MEDS: PRENATAL VITAMINS W/ FOLIC ACID TABLET (FP) PO SCH (10:31)
[2022-04-06] MEDS: amLODIPine BESYLATE 5 MG TABLET (FP) PO SCH (10:31)
[2022-04-06 11:32] LABS: HEMATOCRIT 36.1 % (35.4-49); HEMOGLOBIN 12.1 GM/dL (11.7-16.9); MCH 29.4 pg (25.7-33.7); MCHC 33.4 g/dl (32.0-35.9); MEAN PLT VOLUME 8.3 fl (7.5-11.1); PLATELET COUNT 152 10^3/uL (134-434); RDW 16.2 % (11.9-15.9); WHITE BLOOD COUNT 4.1 K/mm3 (4.0-10.0)
[2022-04-06 11:36] LABS: ALBUMIN 3.6 g/dl (3.4-5.0); CALCIUM 9.3 mg/dL (8.5-10.1)
[2022-04-06 11:37] LABS: BLOOD UREA NITROGEN 10.2 mg/dL (7-18)
[2022-04-06 11:40] LABS: CREATININE 0.9 mg/dL (0.55-1.3)
[2022-04-06 11:41] LABS: BILIRUBIN,TOTAL 0.5 mg/dL (0.2-1); TOT PROT 7.3 g/dl (6.4-8.2)
[2022-04-06] MEDS: MAG HYDROX/AL HYDROX/SIMETH 30 ML UNIT-DOSE CUP PO PRN (15:36)
[2022-04-06] MEDS: THIAMINE HCL 100 MG TABLET (FP) PO SCH (22:24)
[2022-04-07] MEDS: hydrOXYzine PAMOATE 25 MG CAPSULE (FP) PO SCH ×5 (06:08→22:54)
[2022-04-07] MEDS: chlordiazePOXIDE HCL 25 MG CAPSULE PO SCH ×4 (06:08→22:53)
[2022-04-07] MEDS ORDERED: methaDONE HCL 10 MG TABLET (FOR DETOX USE ONLY) PO ONE (10:00)
[2022-04-07] MEDS: PRENATAL VITAMINS W/ FOLIC ACID TABLET (FP) PO SCH (10:59)
[2022-04-07] MEDS: amLODIPine BESYLATE 5 MG TABLET (FP) PO SCH (11:01)
[2022-04-07] MEDS: METHOCARBAMOL 500 MG TABLET PO PRN (11:02)
[2022-04-07] MEDS: MELATONIN 5 MG TABLETS PO SCH ×2 (16:55→22:54)
[2022-04-07] MEDS: THIAMINE HCL 100 MG TABLET (FP) PO SCH (22:53)
[2022-04-08] MEDS ORDERED: chlordiazePOXIDE HCL 10 MG CAPSULE PO PRN
[2022-04-08] MEDS: hydrOXYzine PAMOATE 25 MG CAPSULE (FP) PO SCH ×5 (06:17→23:21)
[2022-04-08] MEDS: chlordiazePOXIDE HCL 10 MG CAPSULE PO SCH ×2 (06:17→10:55)
[2022-04-08] MEDS: PRENATAL VITAMINS W/ FOLIC ACID TABLET (FP) PO SCH (10:54)
[2022-04-08] MEDS: amLODIPine BESYLATE 5 MG TABLET (FP) PO SCH (10:55)
[2022-04-08] MEDS ORDERED: LORazepam 1 MG TABLET PO PRN (13:44)
[2022-04-08] MEDS ORDERED: LORazepam 0.5 MG TABLET PO PRN (13:48)
[2022-04-08] MEDS: LORazepam 1 MG TABLET PO SCH ×2 (18:01→23:21)
[2022-04-08] MEDS: MELATONIN 5 MG TABLETS PO SCH (23:21)
[2022-04-08] MEDS: THIAMINE HCL 100 MG TABLET (FP) PO SCH (23:21)
[2022-04-09] MEDS ORDERED: LORazepam 1 MG TABLET PO SCH (05:00)
[2022-04-09] MEDS ORDERED: chlordiazePOXIDE HCL 10 MG CAPSULE PO SCH (05:00)
[2022-04-09] MEDS: hydrOXYzine PAMOATE 25 MG CAPSULE (FP) PO SCH ×5 (06:10→22:48)
[2022-04-09] MEDS: LORazepam 0.5 MG TABLET PO SCH ×2 (06:10→19:13)
[2022-04-09] MEDS ORDERED: methaDONE HCL 10 MG TABLET (FOR DETOX USE ONLY) PO ONE (10:00)
[2022-04-09] MEDS: PRENATAL VITAMINS W/ FOLIC ACID TABLET (FP) PO SCH (10:57)
[2022-04-09] MEDS: LACTULOSE 20 GM/30 ML UDC (FOR ORAL USE ONLY) PO SCH ×4 (10:57→22:48)
[2022-04-09] MEDS: amLODIPine BESYLATE 5 MG TABLET (FP) PO SCH (10:57)
[2022-04-09] MEDS ORDERED: LORazepam 0.5 MG TABLET PO PRN (13:49)
[2022-04-09] MEDS: MAG HYDROX/AL HYDROX/SIMETH 30 ML UNIT-DOSE CUP PO PRN (15:15)
[2022-04-09] MEDS: THIAMINE HCL 100 MG TABLET (FP) PO SCH (22:47)
[2022-04-09] MEDS: MELATONIN 5 MG TABLETS PO SCH (22:48)
[2022-04-10] MEDS ORDERED: LORazepam 0.5 MG TABLET PO PRN
[2022-04-10] MEDS ORDERED: LORazepam 0.5 MG TABLET PO SCH (05:00)
[2022-04-10] MEDS ORDERED: chlordiazePOXIDE HCL 10 MG CAPSULE PO ONE (05:00)
[2022-04-10] MEDS ORDERED: LORazepam 0.5 MG TABLET PO ONE (05:00)
[2022-04-10 06:31] VITALS: RESP 18
[2022-04-10] MEDS: hydrOXYzine PAMOATE 25 MG CAPSULE (FP) PO SCH (06:39)
[2022-04-10 09:58] VITALS: BP 148/88; PULSE 78; TEMP 96.9
== END 2022-04-10 10:02 | disposition home or self-care (01) | DRG 773 ==
LOC: YASAS 12:31 → Y6N 15:12
PROVIDERS: ADMIT Allergy & Immunology; ATTEND Family Medicine Addiction Medicine
PROC: HZ2ZZZZ Detoxification Services for Substance Abuse Treatment (ICD-10-PCS; principal; 2022-04-05)
DX: F11.23 Opioid dependence with withdrawal (principal); F10.230 Alcohol dependence with withdrawal, uncomplicated; F13.20 Sedative, hypnotic or anxiolytic dependence, uncomplicated; F12.20 Cannabis dependence, uncomplicated; F17.210 Nicotine dependence, cigarettes, uncomplicated; F19.282 Other psychoactive substance dependence with psychoactive substance-induced sleep disorder; F19.24 Other psychoactive substance dependence with psychoactive substance-induced mood disorder; F25.0 Schizoaffective disorder, bipolar type; E72.20 Disorder of urea cycle metabolism, unspecified; I10 Essential (primary) hypertension; R76.11 Nonspecific reaction to tuberculin skin test without active tuberculosis; Z20.822 Contact with and (suspected) exposure to COVID-19
CPT/HCPCS: 36415; 80053; 82140; 82962; 85027; 86780; C9803-CS; Q0162; U0003; U0005

== ENCOUNTER 2022-11-23 11:24 | Inpatient (IN) | payer OTHER ==
[2022-11-23 12:00] VITALS: BMI 20.3
[2022-11-23] MEDS ORDERED: NICOTINE 10 MG CARTRIDGE (INHALER) IH PRN (12:18)
[2022-11-23] MEDS ORDERED: BENZONATATE 200 MG CAPSULE PO PRN (12:18)
[2022-11-23] MEDS ORDERED: NALOXONE HCL 0.4 MG/ML VIAL IM PRN (12:18)
[2022-11-23] MEDS ORDERED: hydrOXYzine PAMOATE 25 MG CAPSULE (FP) PO PRN (12:18)
[2022-11-23] MEDS ORDERED: ONDANSETRON *ODT* 4 MG TABLET SL PRN (12:18)
[2022-11-23] MEDS ORDERED: MAG HYDROX/AL HYDROX/SIMETH 30 ML UNIT-DOSE CUP PO PRN (12:18)
[2022-11-23] MEDS ORDERED: DICYCLOMINE HCL 10 MG CAPSULE PO PRN (12:18)
[2022-11-23] MEDS ORDERED: BENZOCAINE/MENTHOL (CHLORASEPTIC ) LOZENGE MM PRN (12:18)
[2022-11-23] MEDS ORDERED: ACETAMINOPHEN 325 MG TABLET (FP) PO PRN (12:18)
[2022-11-23] MEDS ORDERED: BISMUTH SUBSALICYLATE 262 MG/15 ML BTL PO PRN (12:18)
[2022-11-23] MEDS ORDERED: IBUPROFEN 400 MG TABLET (FP) PO PRN (12:18)
[2022-11-23] MEDS ORDERED: IBUPROFEN 600 MG TABLET (FP) PO PRN (12:18)
[2022-11-23] MEDS ORDERED: guaiFENesin 600 MG TABLET.ER (FP) PO PRN (12:18)
[2022-11-23] MEDS ORDERED: METHOCARBAMOL 500 MG TABLET PO PRN (12:18)
[2022-11-23] MEDS ORDERED: POLYETHYLENE GLYCOL (HEALTHYLAX) 3350 17 GM PACKET PO PRN (12:18)
[2022-11-23] MEDS ORDERED: NALOXONE HCL (KLOXXADO) 8 MG SPRAY NS PRN (12:18)
[2022-11-23] MEDS ORDERED: LOPERAMIDE HCL 2 MG CAPSULE PO PRN (12:18)
[2022-11-23] MEDS ORDERED: MAGNESIUM HYDROX 2400MG/30ML ORAL SUSPENSION 30 ML CUP PO PRN (12:18)
[2022-11-23] MEDS ORDERED: chlordiazePOXIDE HCL 25 MG CAPSULE PO PRN (12:18)
[2022-11-23] MEDS: PRENATAL VITAMINS W/ FOLIC ACID TABLET (FP) PO SCH ×2 (14:02→14:08)
[2022-11-23] MEDS ORDERED: NICOTINE 7 MG/24 HOURS TOPICAL PATCH TD ONE (14:03)
[2022-11-23] MEDS ORDERED: IBUPROFEN 600 MG TABLET (FP) PO ONE (14:03)
[2022-11-23] MEDS: NICOTINE 7 MG/24 HOURS TOPICAL PATCH TD SCH (14:07)
[2022-11-23] MEDS: chlordiazePOXIDE HCL 25 MG CAPSULE PO SCH ×2 (17:32→22:14)
[2022-11-23 18:59] LABS: HEMATOCRIT 35.4 % (35.4-49); HEMOGLOBIN 12.3 GM/dL (11.7-16.9); MCHC 34.7 g/dl (32.0-35.9); MEAN CELL VOLUME 92.3 fl (80-96); MEAN PLT VOLUME 8.9 fl (7.5-11.1); PLATELET COUNT 145 10^3/uL (134-434); RBC 3.84 M/mm3 (4.00-5.60); RDW 16.9 % (11.9-15.9); WHITE BLOOD COUNT 4.9 K/mm3 (4.0-10.0)
[2022-11-23 19:11] LABS: POTASSIUM 3.6 mmol/L (3.5-5.1)
[2022-11-23 19:13] LABS: BLOOD UREA NITROGEN 5.3 mg/dL (7-18); CALCIUM 9.4 mg/dL (8.5-10.1)
[2022-11-23 19:17] LABS: CREATININE 0.9 mg/dL (0.55-1.3)
[2022-11-23 19:18] LABS: BILIRUBIN,TOTAL 0.5 mg/dL (0.2-1); TOT PROT 7.8 g/dl (6.4-8.2)
[2022-11-23] MEDS: THIAMINE HCL 100 MG TABLET (FP) PO SCH (22:14)
[2022-11-23] MEDS: MELATONIN 5 MG TABLETS PO SCH (22:14)
[2022-11-24] MEDS: chlordiazePOXIDE HCL 25 MG CAPSULE PO SCH (05:46)
[2022-11-24] MEDS ORDERED: LORazepam 1 MG TABLET PO PRN (10:24)
[2022-11-24] MEDS: PRENATAL VITAMINS W/ FOLIC ACID TABLET (FP) PO SCH (10:25)
[2022-11-24] MEDS: amLODIPine BESYLATE 5 MG TABLET (FP) PO SCH (10:26)
[2022-11-24] MEDS: NICOTINE 7 MG/24 HOURS TOPICAL PATCH TD SCH (10:27)
[2022-11-24] MEDS: LORazepam 2 MG TABLET PO SCH ×3 (10:47→22:09)
[2022-11-24] MEDS: LACTULOSE 20 GM/30 ML UDC (FOR ORAL USE ONLY) PO SCH ×2 (14:48→22:08)
[2022-11-24] MEDS: MELATONIN 5 MG TABLETS PO SCH (22:09)
[2022-11-24] MEDS: THIAMINE HCL 100 MG TABLET (FP) PO SCH (22:09)
[2022-11-25] MEDS ORDERED: chlordiazePOXIDE HCL 25 MG CAPSULE PO SCH (05:00)
[2022-11-25] MEDS: LACTULOSE 20 GM/30 ML UDC (FOR ORAL USE ONLY) PO SCH ×3 (06:04→22:54)
[2022-11-25] MEDS: LORazepam 1 MG TABLET PO SCH ×4 (06:04→22:56)
[2022-11-25] MEDS ORDERED: AMMONIUM LACTATE 12% LOTION 225 GM BOTTLE TP PRN (09:20)
[2022-11-25] MEDS: amLODIPine BESYLATE 5 MG TABLET (FP) PO SCH (10:20)
[2022-11-25] MEDS: PRENATAL VITAMINS W/ FOLIC ACID TABLET (FP) PO SCH (10:20)
[2022-11-25] MEDS: NICOTINE 7 MG/24 HOURS TOPICAL PATCH TD SCH (10:22)
[2022-11-25 11:03] LABS: POTASSIUM 3.5 mmol/L (3.5-5.1)
[2022-11-25 11:07] LABS: BLOOD UREA NITROGEN 8.6 mg/dL (7-18); CALCIUM 10.1 mg/dL (8.5-10.1)
[2022-11-25 11:08] LABS: ALBUMIN 3.6 g/dl (3.4-5.0)
[2022-11-25 11:12] LABS: BILIRUBIN,TOTAL 0.5 mg/dL (0.2-1); TOT PROT 6.9 g/dl (6.4-8.2)
[2022-11-25] MEDS ORDERED: PNEUMOC 20-VAL CONJ-DIP CRM/PF 0.5 ML SYRINGE IM ONE (12:00)
[2022-11-25] MEDS: MELATONIN 5 MG TABLETS PO SCH (22:54)
[2022-11-25] MEDS: busPIRone HCL 5 MG TABLET PO SCH (22:55)
[2022-11-25] MEDS: risperiDONE 2 MG TABLET PO SCH (22:55)
[2022-11-25] MEDS: THIAMINE HCL 100 MG TABLET (FP) PO SCH (22:55)
[2022-11-26] MEDS ORDERED: chlordiazePOXIDE HCL 10 MG CAPSULE PO PRN
[2022-11-26] MEDS ORDERED: LORazepam 0.5 MG TABLET PO PRN
[2022-11-26] MEDS ORDERED: LORazepam 0.5 MG TABLET PO SCH (05:00)
[2022-11-26] MEDS ORDERED: chlordiazePOXIDE HCL 10 MG CAPSULE PO SCH (05:00)
[2022-11-26] MEDS: LACTULOSE 20 GM/30 ML UDC (FOR ORAL USE ONLY) PO SCH ×3 (05:53→22:06)
[2022-11-26] MEDS ORDERED: FLUoxetine HCL 20 MG CAPSULE PO SCH (10:00)
[2022-11-26] MEDS: NICOTINE 7 MG/24 HOURS TOPICAL PATCH TD SCH (10:36)
[2022-11-26] MEDS: busPIRone HCL 5 MG TABLET PO SCH ×2 (10:36→22:06)
[2022-11-26] MEDS: PRENATAL VITAMINS W/ FOLIC ACID TABLET (FP) PO SCH (10:36)
[2022-11-26] MEDS: amLODIPine BESYLATE 5 MG TABLET (FP) PO SCH (10:40)
[2022-11-26] MEDS: risperiDONE 2 MG TABLET PO SCH (22:06)
[2022-11-26] MEDS: MELATONIN 5 MG TABLETS PO SCH (22:06)
[2022-11-26] MEDS: THIAMINE HCL 100 MG TABLET (FP) PO SCH (22:06)
[2022-11-27] MEDS ORDERED: LORazepam 0.5 MG TABLET PO ONE (05:00)
[2022-11-27] MEDS ORDERED: chlordiazePOXIDE HCL 10 MG CAPSULE PO SCH (05:00)
[2022-11-27] MEDS: LACTULOSE 20 GM/30 ML UDC (FOR ORAL USE ONLY) PO SCH (05:36)
[2022-11-27 09:52] VITALS: BP 128/83; PULSE 60; RESP 16; TEMP 98.4
[2022-11-28] MEDS ORDERED: chlordiazePOXIDE HCL 10 MG CAPSULE PO ONE (05:00)
== END 2022-11-27 10:25 | disposition home or self-care (01) | DRG 775 ==
LOC: YASAS 11:24 → Y3N 12:27
PROVIDERS: ADMIT Allergy & Immunology; ATTEND Surgery
PROC: HZ2ZZZZ Detoxification Services for Substance Abuse Treatment (ICD-10-PCS; principal; 2022-11-23)
DX: F10.230 Alcohol dependence with withdrawal, uncomplicated (principal); F13.10 Sedative, hypnotic or anxiolytic abuse, uncomplicated; F12.10 Cannabis abuse, uncomplicated; F17.210 Nicotine dependence, cigarettes, uncomplicated; F20.9 Schizophrenia, unspecified; F19.282 Other psychoactive substance dependence with psychoactive substance-induced sleep disorder; F19.24 Other psychoactive substance dependence with psychoactive substance-induced mood disorder; F41.8 Other specified anxiety disorders; E72.20 Disorder of urea cycle metabolism, unspecified; I10 Essential (primary) hypertension; M19.90 Unspecified osteoarthritis, unspecified site; R74.01 Elevation of levels of liver transaminase levels; Z86.11 Personal history of tuberculosis
CPT/HCPCS: 36415; 71046-TC-FY; 74018-TC-FY; 80053; 82140; 85027; 86780; C9803-CS; U0003; U0005

== ENCOUNTER 2022-12-29 10:43 | Inpatient (IN) | payer OTHER ==
[2022-12-29] MEDS ORDERED: cloNIDine HCL 0.1 MG TABLET PO STA (11:15)
[2022-12-29 11:21] VITALS: BMI 20.3
[2022-12-29] MEDS ORDERED: NALOXONE HCL 0.4 MG/ML VIAL IM PRN (11:49)
[2022-12-29] MEDS ORDERED: hydrOXYzine PAMOATE 25 MG CAPSULE (FP) PO PRN (11:49)
[2022-12-29] MEDS ORDERED: LOPERAMIDE HCL 2 MG CAPSULE PO PRN (11:49)
[2022-12-29] MEDS ORDERED: DICYCLOMINE HCL 10 MG CAPSULE PO PRN (11:49)
[2022-12-29] MEDS ORDERED: IBUPROFEN 400 MG TABLET (FP) PO PRN (11:49)
[2022-12-29] MEDS ORDERED: ONDANSETRON *ODT* 4 MG TABLET SL PRN (11:49)
[2022-12-29] MEDS ORDERED: POLYETHYLENE GLYCOL (HEALTHYLAX) 3350 17 GM PACKET PO PRN (11:49)
[2022-12-29] MEDS ORDERED: MAG HYDROX/AL HYDROX/SIMETH 30 ML UNIT-DOSE CUP PO PRN (11:49)
[2022-12-29] MEDS ORDERED: LORazepam 1 MG TABLET PO PRN (11:49)
[2022-12-29] MEDS ORDERED: ACETAMINOPHEN 325 MG TABLET (FP) PO PRN (11:49)
[2022-12-29] MEDS ORDERED: NALOXONE HCL (KLOXXADO) 8 MG SPRAY NS PRN (11:49)
[2022-12-29] MEDS ORDERED: guaiFENesin 600 MG TABLET.ER (FP) PO PRN (11:49)
[2022-12-29] MEDS ORDERED: BISMUTH SUBSALICYLATE 262 MG/15 ML BTL PO PRN (11:49)
[2022-12-29] MEDS ORDERED: METHOCARBAMOL 500 MG TABLET PO PRN (11:49)
[2022-12-29] MEDS ORDERED: IBUPROFEN 600 MG TABLET (FP) PO PRN (11:49)
[2022-12-29] MEDS ORDERED: LORazepam 2 MG TABLET PO ONE (11:49)
[2022-12-29] MEDS ORDERED: BENZONATATE 200 MG CAPSULE PO PRN (11:49)
[2022-12-29] MEDS ORDERED: MAGNESIUM HYDROX 2400MG/30ML ORAL SUSPENSION 30 ML CUP PO PRN (11:49)
[2022-12-29] MEDS ORDERED: BENZOCAINE/MENTHOL (CHLORASEPTIC ) LOZENGE MM PRN (11:49)
[2022-12-29] MEDS ORDERED: NICOTINE 10 MG CARTRIDGE (INHALER) IH PRN (11:49)
[2022-12-29] MEDS ORDERED: cloNIDine HCL 0.1 MG TABLET ONE (12:00)
[2022-12-29] MEDS ORDERED: LORazepam 2 MG TABLET ONE (12:04)
[2022-12-29] MEDS: PRENATAL VITAMINS W/ FOLIC ACID TABLET (FP) PO SCH (12:09)
[2022-12-29 17:05] LABS: POTASSIUM 4.7 mmol/L (3.5-5.1)
[2022-12-29 17:07] LABS: ALBUMIN 4.2 g/dl (3.4-5.0); CALCIUM 9.3 mg/dL (8.5-10.1); HEMOGLOBIN 12.5 GM/dL (11.7-16.9); MCH 31.9 pg (25.7-33.7); MEAN CELL VOLUME 96.7 fl (80-96); MEAN PLT VOLUME 9.3 fl (7.5-11.1); PLATELET COUNT 209 10^3/uL (134-434); RBC 3.93 M/mm3 (4.00-5.60); RDW 15.9 % (11.9-15.9); WHITE BLOOD COUNT 3.8 K/mm3 (4.0-10.0)
[2022-12-29 17:08] LABS: BLOOD UREA NITROGEN 5.4 mg/dL (7-18)
[2022-12-29 17:10] LABS: CREATININE 0.8 mg/dL (0.55-1.3)
[2022-12-29] MEDS: LORazepam 2 MG TABLET PO SCH ×2 (17:11→22:30)
[2022-12-29 17:12] LABS: BILIRUBIN,TOTAL 0.8 mg/dL (0.2-1); TOT PROT 8.2 g/dl (6.4-8.2)
[2022-12-29] MEDS: MELATONIN 5 MG TABLETS PO SCH (22:30)
[2022-12-29] MEDS: THIAMINE HCL 100 MG TABLET (FP) PO SCH (22:30)
[2022-12-30] MEDS: LORazepam 2 MG TABLET PO SCH ×4 (05:15→23:00)
[2022-12-30] MEDS ORDERED: NICOTINE 14 MG/24 HOURS TOPICAL PATCH TD SCH (10:00)
[2022-12-30] MEDS ORDERED: amLODIPine BESYLATE 5 MG TABLET (FP) PO SCH (10:00)
[2022-12-30] MEDS: PRENATAL VITAMINS W/ FOLIC ACID TABLET (FP) PO SCH (10:27)
[2022-12-30] MEDS: LACTULOSE 20 GM/30 ML UDC (FOR ORAL USE ONLY) PO SCH ×2 (13:25→23:16)
[2022-12-30 19:16] VITALS: RESP 18
[2022-12-30 20:45] VITALS: TEMP 97.5
[2022-12-30 20:46] VITALS: BP 151/111; PULSE 93
[2022-12-30] MEDS ORDERED: cloNIDine HCL 0.1 MG TABLET PO ONE (21:46)
[2022-12-30] MEDS: THIAMINE HCL 100 MG TABLET (FP) PO SCH (23:17)
[2022-12-30] MEDS: MELATONIN 5 MG TABLETS PO SCH (23:17)
[2022-12-31] MEDS ORDERED: LORazepam 1 MG TABLET PO SCH (05:00)
[2023-01-01] MEDS ORDERED: LORazepam 0.5 MG TABLET PO PRN
[2023-01-01] MEDS ORDERED: LORazepam 0.5 MG TABLET PO SCH (05:00)
[2023-01-02] MEDS ORDERED: LORazepam 0.5 MG TABLET PO ONE (05:00)
== END 2022-12-31 08:04 | disposition short-term general hospital (02) | DRG 773 ==
LOC: YASAS 10:43 → Y3N 11:56
PROVIDERS: ADMIT Allergy & Immunology; ATTEND Surgery
PROC: HZ2ZZZZ Detoxification Services for Substance Abuse Treatment (ICD-10-PCS; principal; 2022-12-29)
DX: F10.230 Alcohol dependence with withdrawal, uncomplicated (principal); F11.10 Opioid abuse, uncomplicated; F12.10 Cannabis abuse, uncomplicated; F17.210 Nicotine dependence, cigarettes, uncomplicated; F19.282 Other psychoactive substance dependence with psychoactive substance-induced sleep disorder; F19.24 Other psychoactive substance dependence with psychoactive substance-induced mood disorder; F20.9 Schizophrenia, unspecified; F41.8 Other specified anxiety disorders; E72.20 Disorder of urea cycle metabolism, unspecified; I10 Essential (primary) hypertension; R79.89 Other specified abnormal findings of blood chemistry; R26.89 Other abnormalities of gait and mobility; W07.XXXA Fall from chair, initial encounter; Y92.238 Other place in hospital as the place of occurrence of the external cause; Z99.89 Dependence on other enabling machines and devices; Z86.11 Personal history of tuberculosis
CPT/HCPCS: 36415; 80053; 82140; 85027; 86780; 87635

== ENCOUNTER 2023-01-01 17:46 | Inpatient (IN) | payer OTHER ==
[2023-01-01 18:21] VITALS: BMI 23.2
[2023-01-01] MEDS ORDERED: NICOTINE 10 MG CARTRIDGE (INHALER) IH PRN (18:29)
[2023-01-01] MEDS ORDERED: BENZOCAINE/MENTHOL (CHLORASEPTIC ) LOZENGE MM PRN (18:29)
[2023-01-01] MEDS ORDERED: COLLOIDAL OATMEAL 1 BAR EACH TP PRN (18:29)
[2023-01-01] MEDS ORDERED: NALOXONE HCL 0.4 MG/ML VIAL IM PRN (18:29)
[2023-01-01] MEDS ORDERED: MAG HYDROX/AL HYDROX/SIMETH 30 ML UNIT-DOSE CUP PO PRN (18:29)
[2023-01-01] MEDS ORDERED: NALOXONE HCL (KLOXXADO) 8 MG SPRAY NS PRN (18:29)
[2023-01-01] MEDS ORDERED: ACETAMINOPHEN 325 MG TABLET (FP) PO PRN (18:29)
[2023-01-01] MEDS ORDERED: POLYETHYLENE GLYCOL (HEALTHYLAX) 3350 17 GM PACKET PO PRN (18:29)
[2023-01-01] MEDS ORDERED: MAGNESIUM HYDROX 2400MG/30ML ORAL SUSPENSION 30 ML CUP PO PRN (18:29)
[2023-01-01] MEDS ORDERED: guaiFENesin 600 MG TABLET.ER (FP) PO PRN (18:29)
[2023-01-01] MEDS ORDERED: BENZONATATE 200 MG CAPSULE PO PRN (18:29)
[2023-01-01] MEDS ORDERED: IBUPROFEN 600 MG TABLET (FP) PO PRN (18:29)
[2023-01-01] MEDS ORDERED: LOPERAMIDE HCL 2 MG CAPSULE PO PRN (18:29)
[2023-01-01] MEDS ORDERED: AMMONIUM LACTATE 12% LOTION 225 GM BOTTLE TP PRN (18:29)
[2023-01-01] MEDS ORDERED: IBUPROFEN 400 MG TABLET (FP) PO PRN (18:29)
[2023-01-01] MEDS: LABETALOL HCL 200 MG TABLET (FP) PO SCH (21:49)
[2023-01-01] MEDS: amLODIPine BESYLATE 10 MG TABLET (FP) PO SCH (21:49)
[2023-01-01] MEDS: MELATONIN 5 MG TABLETS PO SCH (21:50)
[2023-01-01] MEDS: THIAMINE HCL 100 MG TABLET (FP) PO SCH (21:51)
[2023-01-02] MEDS: LISINOPRIL 20 MG TABLET PO SCH (09:46)
[2023-01-02] MEDS: NICOTINE 14 MG/24 HOURS TOPICAL PATCH TD SCH (09:46)
[2023-01-02] MEDS: LABETALOL HCL 200 MG TABLET (FP) PO SCH ×2 (09:46→21:29)
[2023-01-02] MEDS: PRENATAL VITAMINS W/ FOLIC ACID TABLET (FP) PO SCH (09:46)
[2023-01-02] MEDS ORDERED: FOLIC ACID 1 MG TABLET (FP) PO SCH (10:00)
[2023-01-02 10:15] LABS: HEMATOCRIT 35.4 % (35.4-49); HEMOGLOBIN 11.6 GM/dL (11.7-16.9); MCH 32.2 pg (25.7-33.7); MCHC 32.8 g/dl (32.0-35.9); MEAN CELL VOLUME 98.3 fl (80-96); MEAN PLT VOLUME 9.1 fl (7.5-11.1); PLATELET COUNT 187 10^3/uL (134-434); POTASSIUM 4.6 mmol/L (3.5-5.1); RDW 15.2 % (11.9-15.9); WHITE BLOOD COUNT 4.8 K/mm3 (4.0-10.0)
[2023-01-02 10:20] LABS: CALCIUM 9.4 mg/dL (8.5-10.1)
[2023-01-02 10:21] LABS: ALBUMIN 3.4 g/dl (3.4-5.0); BLOOD UREA NITROGEN 11.8 mg/dL (7-18)
[2023-01-02 10:24] LABS: CREATININE 0.8 mg/dL (0.55-1.3)
[2023-01-02 10:26] LABS: BILIRUBIN,TOTAL 0.5 mg/dL (0.2-1); TOT PROT 6.6 g/dl (6.4-8.2)
[2023-01-02] MEDS ORDERED: FLUoxetine HCL 20 MG CAPSULE PO ONE (11:47)
[2023-01-02 11:59] LABS: EPI CELLS 14 /uL (0-25.1); HYALINE CASTS 0 /uL (0-3.1); URINE APPEARANCE Error; URINE BACTERIA 131 /uL (0-1359); URINE BILIRUBIN NEGATIVE (NEGATIVE); URINE COLOR YELLOW; URINE GLUCOSE (UA) NEGATIVE (NEGATIVE); URINE KETONE NEGATIVE (NEGATIVE); URINE LEUK ESTERASE TRACE (NEGATIVE); URINE NITRITE NEGATIVE (NEGATIVE); URINE PROTEIN NEGATIVE (NEGATIVE); URINE RBC 1 /uL (0-23.9); URINE UROBILINOGEN 0.2 mg/dL (0.2-1.0); URINE WBC 20 /uL (0-25.8)
[2023-01-02] MEDS: amLODIPine BESYLATE 10 MG TABLET (FP) PO SCH (21:29)
[2023-01-02] MEDS: busPIRone HCL 5 MG TABLET PO SCH (21:29)
[2023-01-02] MEDS: MELATONIN 5 MG TABLETS PO SCH (21:30)
[2023-01-02] MEDS: risperiDONE 1 MG TABLET PO SCH (21:30)
[2023-01-02] MEDS: THIAMINE HCL 100 MG TABLET (FP) PO SCH (21:30)
[2023-01-03] MEDS: PRENATAL VITAMINS W/ FOLIC ACID TABLET (FP) PO SCH (10:21)
[2023-01-03] MEDS: LABETALOL HCL 200 MG TABLET (FP) PO SCH (10:22)
[2023-01-03] MEDS: FLUoxetine HCL 20 MG CAPSULE PO SCH (10:22)
[2023-01-03] MEDS: LISINOPRIL 20 MG TABLET PO SCH (10:24)
[2023-01-03] MEDS: NICOTINE 14 MG/24 HOURS TOPICAL PATCH TD SCH (10:24)
[2023-01-03] MEDS: busPIRone HCL 5 MG TABLET PO SCH ×2 (10:24→21:35)
[2023-01-03] MEDS: amLODIPine BESYLATE 10 MG TABLET (FP) PO SCH (21:35)
[2023-01-03] MEDS: LABETALOL HCL 100 MG TABLET (FP) PO SCH (21:35)
[2023-01-03] MEDS: risperiDONE 1 MG TABLET PO SCH (21:35)
[2023-01-03] MEDS: THIAMINE HCL 100 MG TABLET (FP) PO SCH (21:36)
[2023-01-03] MEDS: MELATONIN 5 MG TABLETS PO SCH (21:36)
[2023-01-04] MEDS: busPIRone HCL 5 MG TABLET PO SCH ×2 (09:55→22:28)
[2023-01-04] MEDS: FLUoxetine HCL 20 MG CAPSULE PO SCH (09:55)
[2023-01-04] MEDS: LABETALOL HCL 100 MG TABLET (FP) PO SCH ×2 (09:55→22:29)
[2023-01-04] MEDS: LISINOPRIL 20 MG TABLET PO SCH (09:55)
[2023-01-04] MEDS: PRENATAL VITAMINS W/ FOLIC ACID TABLET (FP) PO SCH (09:55)
[2023-01-04] MEDS: NICOTINE 14 MG/24 HOURS TOPICAL PATCH TD SCH (09:55)
[2023-01-04] MEDS: THIAMINE HCL 100 MG TABLET (FP) PO SCH (22:28)
[2023-01-04] MEDS: amLODIPine BESYLATE 10 MG TABLET (FP) PO SCH (22:28)
[2023-01-04] MEDS: risperiDONE 1 MG TABLET PO SCH (22:29)
[2023-01-04] MEDS: MELATONIN 5 MG TABLETS PO SCH (22:29)
[2023-01-05] MEDS: FLUoxetine HCL 20 MG CAPSULE PO SCH (10:10)
[2023-01-05] MEDS: PRENATAL VITAMINS W/ FOLIC ACID TABLET (FP) PO SCH (10:10)
[2023-01-05] MEDS: busPIRone HCL 5 MG TABLET PO SCH ×2 (10:10→21:20)
[2023-01-05] MEDS: LISINOPRIL 20 MG TABLET PO SCH (10:10)
[2023-01-05] MEDS: LABETALOL HCL 100 MG TABLET (FP) PO SCH ×2 (10:11→21:20)
[2023-01-05] MEDS: NICOTINE 14 MG/24 HOURS TOPICAL PATCH TD SCH (10:11)
[2023-01-05] MEDS: THIAMINE HCL 100 MG TABLET (FP) PO SCH (21:20)
[2023-01-05] MEDS: MELATONIN 5 MG TABLETS PO SCH (21:20)
[2023-01-05] MEDS: risperiDONE 1 MG TABLET PO SCH (21:20)
[2023-01-05] MEDS: amLODIPine BESYLATE 10 MG TABLET (FP) PO SCH (21:20)
[2023-01-06] MEDS: LABETALOL HCL 100 MG TABLET (FP) PO SCH ×2 (09:59→21:14)
[2023-01-06] MEDS: LISINOPRIL 20 MG TABLET PO SCH (10:00)
[2023-01-06] MEDS: PRENATAL VITAMINS W/ FOLIC ACID TABLET (FP) PO SCH (10:00)
[2023-01-06] MEDS: NICOTINE 14 MG/24 HOURS TOPICAL PATCH TD SCH (10:00)
[2023-01-06] MEDS: busPIRone HCL 5 MG TABLET PO SCH ×2 (10:00→21:15)
[2023-01-06] MEDS: FLUoxetine HCL 20 MG CAPSULE PO SCH (10:00)
[2023-01-06] MEDS: LACTULOSE 20 GM/30 ML UDC (FOR ORAL USE ONLY) PO SCH ×2 (13:46→21:14)
[2023-01-06] MEDS: MELATONIN 5 MG TABLETS PO SCH (21:14)
[2023-01-06] MEDS: amLODIPine BESYLATE 10 MG TABLET (FP) PO SCH (21:14)
[2023-01-06] MEDS: THIAMINE HCL 100 MG TABLET (FP) PO SCH (21:14)
[2023-01-06] MEDS: risperiDONE 1 MG TABLET PO SCH (21:15)
[2023-01-07] MEDS: LACTULOSE 20 GM/30 ML UDC (FOR ORAL USE ONLY) PO SCH ×3 (06:15→21:21)
[2023-01-07] MEDS: NICOTINE 14 MG/24 HOURS TOPICAL PATCH TD SCH (10:24)
[2023-01-07] MEDS: busPIRone HCL 5 MG TABLET PO SCH ×2 (10:25→21:22)
[2023-01-07] MEDS: FLUoxetine HCL 20 MG CAPSULE PO SCH (10:25)
[2023-01-07] MEDS: LISINOPRIL 20 MG TABLET PO SCH (10:25)
[2023-01-07] MEDS: PRENATAL VITAMINS W/ FOLIC ACID TABLET (FP) PO SCH (10:25)
[2023-01-07] MEDS: LABETALOL HCL 100 MG TABLET (FP) PO SCH ×2 (10:26→21:22)
[2023-01-07 14:40] LABS: INR 1.09 (0.83-1.09); PROTHROMBIN TIME (PATIENT) 12.6 SEC (9.7-13.0)
[2023-01-07 15:09] LABS: MAGNESIUM 1.7 mg/dL (1.8-2.4)
[2023-01-07] MEDS: THIAMINE HCL 100 MG TABLET (FP) PO SCH (21:21)
[2023-01-07] MEDS: amLODIPine BESYLATE 10 MG TABLET (FP) PO SCH (21:22)
[2023-01-07] MEDS: risperiDONE 1 MG TABLET PO SCH (21:22)
[2023-01-07] MEDS: MELATONIN 5 MG TABLETS PO SCH (21:23)
[2023-01-08] MEDS: LACTULOSE 20 GM/30 ML UDC (FOR ORAL USE ONLY) PO SCH ×3 (06:24→21:44)
[2023-01-08] MEDS: NICOTINE 14 MG/24 HOURS TOPICAL PATCH TD SCH (09:54)
[2023-01-08] MEDS: LABETALOL HCL 100 MG TABLET (FP) PO SCH ×2 (09:54→21:44)
[2023-01-08] MEDS: LISINOPRIL 20 MG TABLET PO SCH (09:54)
[2023-01-08] MEDS: busPIRone HCL 5 MG TABLET PO SCH ×2 (09:54→21:45)
[2023-01-08] MEDS: FLUoxetine HCL 20 MG CAPSULE PO SCH (09:55)
[2023-01-08] MEDS: PRENATAL VITAMINS W/ FOLIC ACID TABLET (FP) PO SCH (09:55)
[2023-01-08] MEDS ORDERED: MAGNESIUM OXIDE 400 MG TABLET (FP) PO ONE ×2 (17:15)
[2023-01-08] MEDS: THIAMINE HCL 100 MG TABLET (FP) PO SCH (21:43)
[2023-01-08] MEDS: MELATONIN 5 MG TABLETS PO SCH (21:44)
[2023-01-08] MEDS: amLODIPine BESYLATE 10 MG TABLET (FP) PO SCH (21:44)
[2023-01-08] MEDS: risperiDONE 1 MG TABLET PO SCH (21:44)
[2023-01-08] MEDS: CHOLECALCIFEROL (VIT D3) 400 UNIT (10 MCG) TABLET PO SCH (21:45)
[2023-01-09] MEDS: LACTULOSE 20 GM/30 ML UDC (FOR ORAL USE ONLY) PO SCH ×3 (06:13→21:14)
[2023-01-09] MEDS ORDERED: MAGNESIUM OXIDE 400 MG TABLET (FP) PO SCH (10:00)
[2023-01-09] MEDS: LISINOPRIL 20 MG TABLET PO SCH (10:01)
[2023-01-09] MEDS: PRENATAL VITAMINS W/ FOLIC ACID TABLET (FP) PO SCH (10:01)
[2023-01-09] MEDS: FLUoxetine HCL 20 MG CAPSULE PO SCH (10:01)
[2023-01-09] MEDS: NICOTINE 14 MG/24 HOURS TOPICAL PATCH TD SCH (10:02)
[2023-01-09] MEDS: busPIRone HCL 5 MG TABLET PO SCH ×2 (10:03→21:14)
[2023-01-09] MEDS: LABETALOL HCL 100 MG TABLET (FP) PO SCH ×2 (10:04→21:14)
[2023-01-09] MEDS: CHOLECALCIFEROL (VIT D3) 400 UNIT (10 MCG) TABLET PO SCH (11:40)
[2023-01-09] MEDS: THIAMINE HCL 100 MG TABLET (FP) PO SCH (21:13)
[2023-01-09] MEDS: risperiDONE 1 MG TABLET PO SCH (21:14)
[2023-01-09] MEDS: MELATONIN 5 MG TABLETS PO SCH (21:14)
[2023-01-09] MEDS: amLODIPine BESYLATE 10 MG TABLET (FP) PO SCH (21:14)
[2023-01-10] MEDS: LACTULOSE 20 GM/30 ML UDC (FOR ORAL USE ONLY) PO SCH ×3 (06:43→21:09)
[2023-01-10] MEDS: LABETALOL HCL 100 MG TABLET (FP) PO SCH ×2 (09:46→23:05)
[2023-01-10] MEDS: CHOLECALCIFEROL (VIT D3) 400 UNIT (10 MCG) TABLET PO SCH (09:46)
[2023-01-10] MEDS: busPIRone HCL 5 MG TABLET PO SCH ×2 (09:46→21:09)
[2023-01-10] MEDS: PRENATAL VITAMINS W/ FOLIC ACID TABLET (FP) PO SCH (09:46)
[2023-01-10] MEDS: LISINOPRIL 20 MG TABLET PO SCH (09:46)
[2023-01-10] MEDS: FLUoxetine HCL 20 MG CAPSULE PO SCH (09:46)
[2023-01-10] MEDS: NICOTINE 14 MG/24 HOURS TOPICAL PATCH TD SCH (09:47)
[2023-01-10] MEDS: MAGNESIUM OXIDE 400 MG TABLET (FP) PO SCH ×2 (10:26→10:42)
[2023-01-10] MEDS: risperiDONE 1 MG TABLET PO SCH (21:08)
[2023-01-10] MEDS: MELATONIN 5 MG TABLETS PO SCH (21:09)
[2023-01-10] MEDS: THIAMINE HCL 100 MG TABLET (FP) PO SCH (21:09)
[2023-01-10] MEDS: amLODIPine BESYLATE 10 MG TABLET (FP) PO SCH (23:05)
[2023-01-11] MEDS: LACTULOSE 20 GM/30 ML UDC (FOR ORAL USE ONLY) PO SCH ×3 (06:54→21:29)
[2023-01-11] MEDS: LABETALOL HCL 100 MG TABLET (FP) PO SCH ×2 (10:20→21:28)
[2023-01-11] MEDS: LISINOPRIL 20 MG TABLET PO SCH (10:20)
[2023-01-11] MEDS: FLUoxetine HCL 20 MG CAPSULE PO SCH (10:21)
[2023-01-11] MEDS: MAGNESIUM OXIDE 400 MG TABLET (FP) PO SCH (10:21)
[2023-01-11] MEDS: busPIRone HCL 5 MG TABLET PO SCH ×2 (10:21→21:27)
[2023-01-11] MEDS: CHOLECALCIFEROL (VIT D3) 400 UNIT (10 MCG) TABLET PO SCH (10:21)
[2023-01-11] MEDS: PRENATAL VITAMINS W/ FOLIC ACID TABLET (FP) PO SCH (10:21)
[2023-01-11] MEDS: NICOTINE 14 MG/24 HOURS TOPICAL PATCH TD SCH (10:21)
[2023-01-11] MEDS: THIAMINE HCL 100 MG TABLET (FP) PO SCH (21:27)
[2023-01-11] MEDS: risperiDONE 1 MG TABLET PO SCH (21:27)
[2023-01-11] MEDS: amLODIPine BESYLATE 10 MG TABLET (FP) PO SCH (21:27)
[2023-01-11] MEDS: MELATONIN 5 MG TABLETS PO SCH (21:28)
[2023-01-12] MEDS: LACTULOSE 20 GM/30 ML UDC (FOR ORAL USE ONLY) PO SCH ×3 (07:00→21:11)
[2023-01-12] MEDS: LISINOPRIL 20 MG TABLET PO SCH (09:52)
[2023-01-12] MEDS: PRENATAL VITAMINS W/ FOLIC ACID TABLET (FP) PO SCH (09:52)
[2023-01-12] MEDS: FLUoxetine HCL 20 MG CAPSULE PO SCH (09:52)
[2023-01-12] MEDS: MAGNESIUM OXIDE 400 MG TABLET (FP) PO SCH (09:53)
[2023-01-12] MEDS: CHOLECALCIFEROL (VIT D3) 400 UNIT (10 MCG) TABLET PO SCH (09:53)
[2023-01-12] MEDS: busPIRone HCL 5 MG TABLET PO SCH ×2 (09:53→21:11)
[2023-01-12] MEDS: NICOTINE 14 MG/24 HOURS TOPICAL PATCH TD SCH (09:54)
[2023-01-12] MEDS: LABETALOL HCL 100 MG TABLET (FP) PO SCH ×2 (09:54→21:10)
[2023-01-12] MEDS: risperiDONE 1 MG TABLET PO SCH (21:11)
[2023-01-12] MEDS: THIAMINE HCL 100 MG TABLET (FP) PO SCH (21:11)
[2023-01-12] MEDS: MELATONIN 5 MG TABLETS PO SCH (21:11)
[2023-01-12] MEDS: amLODIPine BESYLATE 10 MG TABLET (FP) PO SCH (21:11)
[2023-01-13] MEDS: LACTULOSE 20 GM/30 ML UDC (FOR ORAL USE ONLY) PO SCH ×3 (06:36→21:34)
[2023-01-13] MEDS: NICOTINE 14 MG/24 HOURS TOPICAL PATCH TD SCH (09:54)
[2023-01-13] MEDS: LISINOPRIL 20 MG TABLET PO SCH (09:54)
[2023-01-13] MEDS: MAGNESIUM OXIDE 400 MG TABLET (FP) PO SCH (09:55)
[2023-01-13] MEDS: FLUoxetine HCL 20 MG CAPSULE PO SCH (09:55)
[2023-01-13] MEDS: busPIRone HCL 5 MG TABLET PO SCH ×2 (09:55→21:35)
[2023-01-13] MEDS: CHOLECALCIFEROL (VIT D3) 400 UNIT (10 MCG) TABLET PO SCH (09:55)
[2023-01-13] MEDS: PRENATAL VITAMINS W/ FOLIC ACID TABLET (FP) PO SCH (10:43)
[2023-01-13 11:07] VITALS: RESP 18
[2023-01-13] MEDS: LABETALOL HCL 100 MG TABLET (FP) PO SCH ×2 (11:17→21:34)
[2023-01-13] MEDS: MELATONIN 5 MG TABLETS PO SCH (21:33)
[2023-01-13] MEDS: THIAMINE HCL 100 MG TABLET (FP) PO SCH (21:34)
[2023-01-13] MEDS: risperiDONE 1 MG TABLET PO SCH (21:35)
[2023-01-13] MEDS: amLODIPine BESYLATE 10 MG TABLET (FP) PO SCH (21:35)
[2023-01-14] MEDS: LACTULOSE 20 GM/30 ML UDC (FOR ORAL USE ONLY) PO SCH (06:55)
[2023-01-14 07:20] VITALS: BP 115/78; PULSE 72; TEMP 96.9
[2023-01-14] MEDS: PRENATAL VITAMINS W/ FOLIC ACID TABLET (FP) PO SCH (09:23)
[2023-01-14] MEDS: CHOLECALCIFEROL (VIT D3) 400 UNIT (10 MCG) TABLET PO SCH (09:24)
[2023-01-14] MEDS: MAGNESIUM OXIDE 400 MG TABLET (FP) PO SCH (09:24)
[2023-01-14] MEDS: LISINOPRIL 20 MG TABLET PO SCH (09:24)
[2023-01-14] MEDS: busPIRone HCL 5 MG TABLET PO SCH (09:24)
[2023-01-14] MEDS: FLUoxetine HCL 20 MG CAPSULE PO SCH (09:24)
[2023-01-14] MEDS: NICOTINE 14 MG/24 HOURS TOPICAL PATCH TD SCH (09:25)
[2023-01-14] MEDS: LABETALOL HCL 100 MG TABLET (FP) PO SCH (09:25)
== END 2023-01-14 09:38 | disposition home or self-care (01) | DRG 772 ==
LOC: YASAS 17:46 → Y3W 18:58
PROVIDERS: ADMIT Allergy & Immunology; ATTEND Psychiatry & Neurology Pain Medicine
PROC: HZ42ZZZ Group Counseling for Substance Abuse Treatment, Cognitive-Behavioral (ICD-10-PCS; principal; 2023-01-01)
DX: F11.20 Opioid dependence, uncomplicated (principal); F10.20 Alcohol dependence, uncomplicated; F17.210 Nicotine dependence, cigarettes, uncomplicated; F19.282 Other psychoactive substance dependence with psychoactive substance-induced sleep disorder; F20.9 Schizophrenia, unspecified; F32.A Depression, unspecified; E72.20 Disorder of urea cycle metabolism, unspecified; E55.9 Vitamin D deficiency, unspecified; I10 Essential (primary) hypertension; D53.1 Other megaloblastic anemias, not elsewhere classified; K74.60 Unspecified cirrhosis of liver; R74.01 Elevation of levels of liver transaminase levels; Z99.89 Dependence on other enabling machines and devices
CPT/HCPCS: 0241U-QW; 36415; 70450-TC; 71045-TC-FY; 72125-TC; 76705-TC; 80048; 80053; 80307; 81003; 82140; 82306; 82607; 82746; 82962; 83036; 83735; 84100; 84484; 85025; 85027; 85610; 85730; 86704; 86705; 86780; 86803; 87086; 87517; 87635; 93005; 93010; 99285-25; G0378

== ENCOUNTER 2023-03-03 09:46 | Inpatient (IN) | payer OTHER ==
[2023-03-03 10:37] VITALS: BMI 20.5
[2023-03-03] MEDS ORDERED: ACETAMINOPHEN 325 MG TABLET (FP) PO PRN (12:24)
[2023-03-03] MEDS ORDERED: IBUPROFEN 400 MG TABLET (FP) PO PRN (12:24)
[2023-03-03] MEDS ORDERED: MAGNESIUM HYDROX 2400MG/30ML ORAL SUSPENSION 30 ML CUP PO PRN (12:24)
[2023-03-03] MEDS ORDERED: BENZOCAINE/MENTHOL (CHLORASEPTIC ) LOZENGE MM PRN (12:24)
[2023-03-03] MEDS ORDERED: NALOXONE HCL 0.4 MG/ML VIAL IM PRN (12:24)
[2023-03-03] MEDS ORDERED: METHOCARBAMOL 500 MG TABLET PO PRN (12:24)
[2023-03-03] MEDS ORDERED: MAG HYDROX/AL HYDROX/SIMETH 30 ML UNIT-DOSE CUP PO PRN (12:24)
[2023-03-03] MEDS ORDERED: POLYETHYLENE GLYCOL (HEALTHYLAX) 3350 17 GM PACKET PO PRN (12:24)
[2023-03-03] MEDS ORDERED: DICYCLOMINE HCL 10 MG CAPSULE PO PRN (12:24)
[2023-03-03] MEDS ORDERED: BENZONATATE 200 MG CAPSULE PO PRN (12:24)
[2023-03-03] MEDS ORDERED: guaiFENesin 600 MG TABLET.ER (FP) PO PRN (12:24)
[2023-03-03] MEDS ORDERED: IBUPROFEN 600 MG TABLET (FP) PO PRN (12:24)
[2023-03-03] MEDS ORDERED: LORazepam 1 MG TABLET PO PRN (12:24)
[2023-03-03] MEDS ORDERED: NALOXONE HCL (KLOXXADO) 8 MG SPRAY NS PRN (12:24)
[2023-03-03] MEDS ORDERED: ONDANSETRON *ODT* 4 MG TABLET SL PRN (12:24)
[2023-03-03] MEDS ORDERED: BISMUTH SUBSALICYLATE 524 MG/30 ML PO PRN (12:24)
[2023-03-03] MEDS ORDERED: LOPERAMIDE HCL 2 MG CAPSULE PO PRN (12:24)
[2023-03-03] MEDS: PRENATAL VITAMINS W/ FOLIC ACID TABLET (FP) PO SCH (13:00)
[2023-03-03] MEDS ORDERED: cloNIDine HCL 0.1 MG TABLET PO STA (14:36)
[2023-03-03] MEDS ORDERED: cloNIDine HCL 0.1 MG TABLET ONE (14:37)
[2023-03-03] MEDS ORDERED: LORazepam 1 MG TABLET ONE (14:55)
[2023-03-03 16:59] LABS: HEMATOCRIT 37.2 % (35.4-49); HEMOGLOBIN 12.5 GM/dL (11.7-16.9); MCH 31.3 pg (25.7-33.7); MCHC 33.7 g/dl (32.0-35.9); MEAN CELL VOLUME 92.9 fl (80-96); PLATELET COUNT 223 10^3/uL (134-434); RBC 4.01 M/mm3 (4.00-5.60); RDW 14.6 % (11.9-15.9); WHITE BLOOD COUNT 4.4 K/mm3 (4.0-10.0)
[2023-03-03 16:59] LABS: POTASSIUM 4.2 mmol/L (3.5-5.1)
[2023-03-03 17:05] LABS: ALBUMIN 3.7 g/dl (3.4-5.0); BLOOD UREA NITROGEN 6.8 mg/dL (7-18); CALCIUM 8.8 mg/dL (8.5-10.1)
[2023-03-03 17:08] LABS: CREATININE 0.8 mg/dL (0.55-1.3)
[2023-03-03 17:09] LABS: BILIRUBIN,TOTAL 0.3 mg/dL (0.2-1)
[2023-03-03 17:10] LABS: TOT PROT 7.2 g/dl (6.4-8.2)
[2023-03-03] MEDS: LORazepam 2 MG TABLET PO SCH ×2 (17:45→22:43)
[2023-03-03] MEDS: hydrOXYzine PAMOATE 25 MG CAPSULE (FP) PO PRN (17:46)
[2023-03-03] MEDS ORDERED: amLODIPine BESYLATE 10 MG TABLET (FP) PO SCH (22:00)
[2023-03-03] MEDS: amLODIPine BESYLATE 10 MG TABLET (FP) PO SCH (22:42)
[2023-03-03] MEDS: LABETALOL HCL 100 MG TABLET (FP) PO SCH (22:42)
[2023-03-03] MEDS: MELATONIN 5 MG TABLETS PO SCH (22:42)
[2023-03-03] MEDS: busPIRone HCL 5 MG TABLET PO SCH (22:43)
[2023-03-03] MEDS: THIAMINE HCL 100 MG TABLET (FP) PO SCH (22:43)
[2023-03-03] MEDS: risperiDONE 1 MG TABLET PO SCH (22:43)
[2023-03-04] MEDS: LORazepam 2 MG TABLET PO SCH ×4 (05:43→23:15)
[2023-03-04] MEDS: busPIRone HCL 5 MG TABLET PO SCH ×2 (10:42→23:13)
[2023-03-04] MEDS: FLUoxetine HCL 20 MG CAPSULE PO SCH (10:42)
[2023-03-04] MEDS: LABETALOL HCL 100 MG TABLET (FP) PO SCH ×2 (10:42→23:14)
[2023-03-04] MEDS: LISINOPRIL 20 MG TABLET PO SCH (10:43)
[2023-03-04] MEDS: PRENATAL VITAMINS W/ FOLIC ACID TABLET (FP) PO SCH (10:43)
[2023-03-04] MEDS: MELATONIN 5 MG TABLETS PO SCH (23:12)
[2023-03-04] MEDS: risperiDONE 1 MG TABLET PO SCH (23:13)
[2023-03-04] MEDS: amLODIPine BESYLATE 10 MG TABLET (FP) PO SCH (23:16)
[2023-03-04] MEDS: THIAMINE HCL 100 MG TABLET (FP) PO SCH (23:22)
[2023-03-05] MEDS: LORazepam 1 MG TABLET PO SCH ×4 (05:20→22:47)
[2023-03-05] MEDS: busPIRone HCL 5 MG TABLET PO SCH ×2 (10:40→22:40)
[2023-03-05] MEDS: LABETALOL HCL 100 MG TABLET (FP) PO SCH ×2 (10:40→22:40)
[2023-03-05] MEDS: PRENATAL VITAMINS W/ FOLIC ACID TABLET (FP) PO SCH (10:40)
[2023-03-05] MEDS: LISINOPRIL 20 MG TABLET PO SCH (10:41)
[2023-03-05] MEDS: FLUoxetine HCL 20 MG CAPSULE PO SCH (10:41)
[2023-03-05] MEDS: amLODIPine BESYLATE 10 MG TABLET (FP) PO SCH (22:40)
[2023-03-05] MEDS: MELATONIN 5 MG TABLETS PO SCH (22:40)
[2023-03-05] MEDS: risperiDONE 1 MG TABLET PO SCH (22:40)
[2023-03-05] MEDS: THIAMINE HCL 100 MG TABLET (FP) PO SCH (22:41)
[2023-03-06] MEDS ORDERED: LORazepam 0.5 MG TABLET PO PRN
[2023-03-06] MEDS: hydrOXYzine PAMOATE 25 MG CAPSULE (FP) PO PRN (01:33)
[2023-03-06] MEDS: LORazepam 0.5 MG TABLET PO SCH ×2 (05:34→10:49)
[2023-03-06 09:52] VITALS: BP 113/78; PULSE 81; RESP 16; TEMP 97.7
[2023-03-06] MEDS: FLUoxetine HCL 20 MG CAPSULE PO SCH (10:49)
[2023-03-06] MEDS: LISINOPRIL 20 MG TABLET PO SCH (10:49)
[2023-03-06] MEDS: LABETALOL HCL 100 MG TABLET (FP) PO SCH (10:49)
[2023-03-06] MEDS: busPIRone HCL 5 MG TABLET PO SCH (10:49)
[2023-03-06] MEDS: PRENATAL VITAMINS W/ FOLIC ACID TABLET (FP) PO SCH (10:49)
[2023-03-07] MEDS ORDERED: LORazepam 0.5 MG TABLET PO ONE (05:00)
== END 2023-03-06 11:32 | disposition home or self-care (01) | DRG 773 ==
LOC: YASAS 09:46 → Y3N 14:43
PROVIDERS: ADMIT Allergy & Immunology; ATTEND Allergy & Immunology
PROC: HZ2ZZZZ Detoxification Services for Substance Abuse Treatment (ICD-10-PCS; principal; 2023-03-03)
DX: F10.230 Alcohol dependence with withdrawal, uncomplicated (principal); F11.10 Opioid abuse, uncomplicated; F17.210 Nicotine dependence, cigarettes, uncomplicated; F19.282 Other psychoactive substance dependence with psychoactive substance-induced sleep disorder; F20.9 Schizophrenia, unspecified; I10 Essential (primary) hypertension; K74.60 Unspecified cirrhosis of liver
CPT/HCPCS: 36415; 80053; 85027; 86780; 87635

== ENCOUNTER 2023-08-15 18:55 | Inpatient (IN) | payer OTHER ==
[2023-08-15 19:45] VITALS: BMI 20.5
[2023-08-15] MEDS ORDERED: MAG HYDROX/AL HYDROX/SIMETH 30 ML UNIT-DOSE CUP PO PRN (20:11)
[2023-08-15] MEDS ORDERED: P-EPHED 60MG/TRIPROLIDI 2.5MG TABLET PO PRN (20:11)
[2023-08-15] MEDS ORDERED: POLYETHYLENE GLYCOL (HEALTHYLAX) 3350 17 GM PACKET PO PRN (20:11)
[2023-08-15] MEDS ORDERED: BENZOCAINE/MENTHOL (CHLORASEPTIC ) LOZENGE MM PRN (20:11)
[2023-08-15] MEDS ORDERED: ACETAMINOPHEN 325 MG TABLET (FP) PO PRN (20:11)
[2023-08-15] MEDS ORDERED: LOPERAMIDE HCL 2 MG CAPSULE PO PRN (20:11)
[2023-08-15] MEDS ORDERED: guaiFENesin 600 MG TABLET.ER (FP) PO PRN (20:11)
[2023-08-15] MEDS ORDERED: BENZONATATE 200 MG CAPSULE PO PRN (20:11)
[2023-08-15] MEDS ORDERED: MAGNESIUM HYDROX 2400MG/30ML ORAL SUSPENSION 30 ML CUP PO PRN (20:11)
[2023-08-15] MEDS: THIAMINE HCL 100 MG TABLET (FP) PO SCH (22:14)
[2023-08-15] MEDS ORDERED: ATORVASTATIN CA 40 MG TABLET (FP) ONE (22:56)
[2023-08-15] MEDS: APIXABAN 5 MG TABLET PO SCH (22:59)
[2023-08-15] MEDS: ATORVASTATIN CA 80 MG TABLET (FP) PO SCH (22:59)
[2023-08-16] MEDS ORDERED: PATIENT'S OWN MEDICATION (NON-FORMULARY) (Ferrous Sulfate [Ferrous Sulfate] 325 MG Tablet) PO SCH (10:00)
[2023-08-16] MEDS ORDERED: PATIENT'S OWN MEDICATION (NON-FORMULARY) (Omeprazole 20 MG Capsule.Dr) PO SCH (10:00)
[2023-08-16] MEDS: amLODIPine BESYLATE 10 MG TABLET (FP) PO SCH (10:02)
[2023-08-16] MEDS: PRENATAL VITAMINS W/ FOLIC ACID TABLET (FP) PO SCH (10:03)
[2023-08-16] MEDS: PANTOPRAZOLE 40 MG TABLET PO SCH (10:03)
[2023-08-16] MEDS: APIXABAN 5 MG TABLET PO SCH ×2 (10:03→21:07)
[2023-08-16] MEDS: FERROUS SO4 325 MG TABLET (FP) PO SCH (10:03)
[2023-08-16] MEDS: FOLIC ACID 1 MG TABLET (FP) PO SCH (10:03)
[2023-08-16] MEDS: metoPROLOL SUCCINATE 25 MG TAB.SR.24H (FP) PO SCH (10:03)
[2023-08-16] MEDS: busPIRone HCL 5 MG TABLET PO SCH ×2 (12:29→21:07)
[2023-08-16] MEDS: clonazePAM 0.5 MG ODT TABLETS SL SCH (12:30)
[2023-08-16] MEDS ORDERED: ATORVASTATIN CA 40 MG TABLET (FP) ONE (18:30)
[2023-08-16] MEDS: THIAMINE HCL 100 MG TABLET (FP) PO SCH (21:06)
[2023-08-16] MEDS: MELATONIN 5 MG TABLETS PO PRN (21:06)
[2023-08-16] MEDS: ATORVASTATIN CA 80 MG TABLET (FP) PO SCH (21:07)
[2023-08-16] MEDS: QUEtiapine FUMARATE 25 MG TABLET PO SCH (21:07)
[2023-08-16] MEDS: risperiDONE 2 MG TABLET PO SCH (21:08)
[2023-08-17 09:59] LABS: BASO % 0.5 % (0-2.0); EOS % 5.1 % (0-4.5); HEMATOCRIT 27.4 % (35.4-49); HEMOGLOBIN 8.9 GM/dL (11.7-16.9); LYMPH % 24.3 % (8-40); MCH 27.6 pg (25.7-33.7); MCHC 32.6 g/dl (32.0-35.9); MEAN CELL VOLUME 84.5 fl (80-96); MEAN PLT VOLUME 9.2 fl (7.5-11.1); MONO % 6.7 % (3.8-10.2); NEUT % 63.4 % (42.8-82.8); PLATELET COUNT 283 10^3/uL (134-434); RBC 3.25 M/mm3 (4.00-5.60); RDW 18.3 % (11.9-15.9); WHITE BLOOD COUNT 5.1 K/mm3 (4.0-10.0)
[2023-08-17] MEDS: FERROUS SO4 325 MG TABLET (FP) PO SCH (10:30)
[2023-08-17] MEDS: APIXABAN 5 MG TABLET PO SCH ×2 (10:30→21:35)
[2023-08-17] MEDS: busPIRone HCL 5 MG TABLET PO SCH ×2 (10:30→21:36)
[2023-08-17] MEDS: PANTOPRAZOLE 40 MG TABLET PO SCH (10:30)
[2023-08-17] MEDS: amLODIPine BESYLATE 10 MG TABLET (FP) PO SCH (10:30)
[2023-08-17] MEDS: PRENATAL VITAMINS W/ FOLIC ACID TABLET (FP) PO SCH (10:30)
[2023-08-17] MEDS: metoPROLOL SUCCINATE 25 MG TAB.SR.24H (FP) PO SCH (10:30)
[2023-08-17] MEDS: FOLIC ACID 1 MG TABLET (FP) PO SCH (10:30)
[2023-08-17 10:33] LABS: POTASSIUM 3.7 mmol/L (3.5-5.1)
[2023-08-17 10:37] LABS: ALBUMIN 3.3 g/dl (3.4-5.0)
[2023-08-17 10:38] LABS: BLOOD UREA NITROGEN 13.6 mg/dL (7-18); CALCIUM 9.2 mg/dL (8.5-10.1); MAGNESIUM 1.6 mg/dL (1.8-2.4)
[2023-08-17 10:42] LABS: BILIRUBIN,TOTAL 0.2 mg/dL (0.2-1)
[2023-08-17] MEDS: clonazePAM 0.5 MG ODT TABLETS SL SCH (10:57)
[2023-08-17] MEDS ORDERED: PANTOPRAZOLE 20 MG TABLET PO SCH (16:30)
[2023-08-17] MEDS ORDERED: ATORVASTATIN CA 40 MG TABLET (FP) ONE (21:21)
[2023-08-17] MEDS: QUEtiapine FUMARATE 25 MG TABLET PO SCH (21:35)
[2023-08-17] MEDS: LACTULOSE 20 GM/30 ML UDC (FOR ORAL USE ONLY) PO SCH (21:35)
[2023-08-17] MEDS: risperiDONE 2 MG TABLET PO SCH (21:36)
[2023-08-17] MEDS: ATORVASTATIN CA 80 MG TABLET (FP) PO SCH (21:36)
[2023-08-17] MEDS: THIAMINE HCL 100 MG TABLET (FP) PO SCH (21:36)
[2023-08-17] MEDS: MELATONIN 5 MG TABLETS PO PRN (21:37)
[2023-08-17] MEDS: MAGNESIUM OXIDE 400 MG TABLET (FP) PO SCH (22:13)
[2023-08-18] MEDS: LACTULOSE 20 GM/30 ML UDC (FOR ORAL USE ONLY) PO SCH ×3 (06:34→21:11)
[2023-08-18] MEDS: PRENATAL VITAMINS W/ FOLIC ACID TABLET (FP) PO SCH (09:14)
[2023-08-18] MEDS: clonazePAM 0.5 MG ODT TABLETS SL SCH (09:14)
[2023-08-18] MEDS: FERROUS SO4 325 MG TABLET (FP) PO SCH (09:15)
[2023-08-18] MEDS: APIXABAN 5 MG TABLET PO SCH ×2 (09:15→21:12)
[2023-08-18] MEDS: amLODIPine BESYLATE 10 MG TABLET (FP) PO SCH (09:15)
[2023-08-18] MEDS: busPIRone HCL 5 MG TABLET PO SCH ×2 (09:15→21:12)
[2023-08-18] MEDS: PANTOPRAZOLE 40 MG TABLET PO SCH (09:15)
[2023-08-18] MEDS: metoPROLOL SUCCINATE 25 MG TAB.SR.24H (FP) PO SCH (09:15)
[2023-08-18] MEDS: FOLIC ACID 1 MG TABLET (FP) PO SCH (09:15)
[2023-08-18] MEDS: MAGNESIUM OXIDE 400 MG TABLET (FP) PO SCH ×2 (09:15→21:12)
[2023-08-18] MEDS ORDERED: ATORVASTATIN CA 40 MG TABLET (FP) ONE (19:17)
[2023-08-18] MEDS: risperiDONE 2 MG TABLET PO SCH (21:11)
[2023-08-18] MEDS: ATORVASTATIN CA 80 MG TABLET (FP) PO SCH (21:12)
[2023-08-18] MEDS: QUEtiapine FUMARATE 25 MG TABLET PO SCH (21:12)
[2023-08-18] MEDS: THIAMINE HCL 100 MG TABLET (FP) PO SCH (21:36)
[2023-08-19] MEDS: LACTULOSE 20 GM/30 ML UDC (FOR ORAL USE ONLY) PO SCH ×2 (06:21→13:42)
[2023-08-19 07:08] VITALS: RESP 16; TEMP 97.8
[2023-08-19] MEDS: PRENATAL VITAMINS W/ FOLIC ACID TABLET (FP) PO SCH (09:18)
[2023-08-19] MEDS: PANTOPRAZOLE 40 MG TABLET PO SCH (09:19)
[2023-08-19] MEDS: FOLIC ACID 1 MG TABLET (FP) PO SCH (09:19)
[2023-08-19] MEDS: FERROUS SO4 325 MG TABLET (FP) PO SCH (09:19)
[2023-08-19] MEDS: busPIRone HCL 5 MG TABLET PO SCH (09:20)
[2023-08-19] MEDS: metoPROLOL SUCCINATE 25 MG TAB.SR.24H (FP) PO SCH (09:20)
[2023-08-19] MEDS: MAGNESIUM OXIDE 400 MG TABLET (FP) PO SCH (09:20)
[2023-08-19] MEDS: APIXABAN 5 MG TABLET PO SCH (09:20)
[2023-08-19] MEDS: amLODIPine BESYLATE 10 MG TABLET (FP) PO SCH (09:21)
[2023-08-19] MEDS: clonazePAM 0.5 MG ODT TABLETS SL SCH (09:21)
[2023-08-19 09:51] VITALS: BP 106/67; PULSE 80
[2023-08-19] MEDS ORDERED: ATORVASTATIN CA 40 MG TABLET (FP) ONE (19:48)
== END 2023-08-19 16:31 | disposition left against medical advice (07) | DRG 770 ==
LOC: YASAS 18:55 → Y3W 21:12
PROVIDERS: ADMIT Allergy & Immunology; ATTEND Psychiatry & Neurology Pain Medicine
PROC: HZ42ZZZ Group Counseling for Substance Abuse Treatment, Cognitive-Behavioral (ICD-10-PCS; principal; 2023-08-15)
DX: F10.20 Alcohol dependence, uncomplicated (principal); F12.20 Cannabis dependence, uncomplicated; F17.210 Nicotine dependence, cigarettes, uncomplicated; E72.20 Disorder of urea cycle metabolism, unspecified; I25.10 Atherosclerotic heart disease of native coronary artery without angina pectoris; I10 Essential (primary) hypertension; D64.9 Anemia, unspecified; R26.89 Other abnormalities of gait and mobility; R76.11 Nonspecific reaction to tuberculin skin test without active tuberculosis; Z86.73 Personal history of transient ischemic attack (TIA), and cerebral infarction without residual deficits; Z86.711 Personal history of pulmonary embolism; Z86.718 Personal history of other venous thrombosis and embolism; Z79.01 Long term (current) use of anticoagulants
CPT/HCPCS: 36415; 80053; 82140; 82652; 82962; 83735; 85025; 86803